=== PATIENT | male | born 1945 | race Caucasian/White ===

== ENCOUNTER 2021-02-03 12:00 | Day surgery (SDC) | payer MEDICARE ==
[2021-02-03] MEDS ORDERED: Depo-Medrol 40 MG/ML IM ONE (12:01)
[2021-02-03] MEDS ORDERED: LIDOCAINE HCL 2% 100 MG/5 ML IJ ONE (12:01)
[2021-02-03] MEDS ORDERED: DIPRIVAN 200 MG/20 ML IV ONE (14:00)
[2021-02-03] MEDS ORDERED: Lactated Ringers 1,000 ML IV ONE (14:12)
--- NOTE | 2021-02-03 16:32 | XRAY ---
Indication: Bilateral L4-S1 MBB. Intraoperative fluoroscopy provided for 18 seconds. Single digital spot image submitted for interpretation demonstrates posterior needle tips projecting over the expected left and right L4-S1 nerve roots. Correlate with intraoperative findings/report.
--- NOTE | 2021-02-03 16:39 | XRAY ---
18 seconds fluoroscopy time in surgery for bilateral L4-S1 MBB.
== END 2021-02-03 14:20 | disposition home or self-care (01) ==
LOC: SDC-PAIN 12:00
PROVIDERS: ATTEND Psychiatry & Neurology Pain Medicine
DX: M47.816 Spondylosis without myelopathy or radiculopathy, lumbar region (principal); I10 Essential (primary) hypertension; Z79.899 Other long term (current) drug therapy
CPT/HCPCS: 64493; 64494; 72020; 77002; J1030; J2704

== ENCOUNTER 2021-03-02 11:44 | Day surgery (SDC) | payer MEDICARE ==
[2021-03-02] MEDS ORDERED: Depo-Medrol 40 MG/ML IM ONE (11:45)
[2021-03-02] MEDS ORDERED: BUPIVACAINE 0.5% VIAL IJ ONE (11:45)
[2021-03-02] MEDS ORDERED: Lactated Ringers 1,000 ML IV ONE (14:09)
[2021-03-02] MEDS ORDERED: DIPRIVAN 200 MG/20 ML IV ONE (14:45)
--- NOTE | 2021-03-02 16:17 | XRAY ---
Indication: Bilateral L4-S1 MBB. Intraoperative fluoroscopy provided for 12 seconds. Single digital spot image submitted for interpretation demonstrates posterior needle tips projecting over the expected left and right L4-S1 nerve roots. Correlate with intraoperative findings/report.
--- NOTE | 2021-03-02 16:28 | XRAY ---
12 seconds of fluoroscopy was used in surgery for a bilateral L4-S1 MBB.
== END 2021-03-02 15:10 | disposition home or self-care (01) ==
LOC: SDC-PAIN 11:44
PROVIDERS: ATTEND Psychiatry & Neurology Pain Medicine
DX: M47.816 Spondylosis without myelopathy or radiculopathy, lumbar region (principal); I10 Essential (primary) hypertension; Z79.899 Other long term (current) drug therapy
CPT/HCPCS: 64493; 64494; 72020; 77002; J1030; J2704

== ENCOUNTER 2021-06-01 09:52 | Day surgery (SDC) | payer MEDICARE ==
[2021-06-01] MEDS ORDERED: Xylocaine 1% Vial 30 ML PF IJ ONE (09:53)
[2021-06-01] MEDS ORDERED: Depo-Medrol 40 MG/ML IM ONE (09:53)
[2021-06-01] MEDS ORDERED: BUPIVACAINE 0.5% VIAL IJ ONE (09:53)
[2021-06-01] MEDS ORDERED: Lactated Ringers 1,000 ML IV ONE (11:49)
[2021-06-01] MEDS ORDERED: DIPRIVAN 200 MG/20 ML IV ONE (11:55)
--- NOTE | 2021-06-01 12:53 | XRAY ---
Indication: Left L4-S1 RFA. Intraoperative fluoroscopy provided for 18 seconds. 3 digital spot images submitted for interpretation demonstrates posterior needle tips projecting over the expected left L4-S1 nerve roots. Correlate with intraoperative findings/report.
--- NOTE | 2021-06-01 13:01 | XRAY ---
18 seconds fluoroscopy time in surgery for left L4-S1 RFA.
== END 2021-06-01 12:28 | disposition home or self-care (01) ==
LOC: SDC-PAIN 09:52
PROVIDERS: ATTEND Psychiatry & Neurology Pain Medicine
DX: M47.816 Spondylosis without myelopathy or radiculopathy, lumbar region (principal); Z79.899 Other long term (current) drug therapy
CPT/HCPCS: 64635; 64636; 72100; 77002; 99100; J1030; J2001; J2704

== ENCOUNTER 2021-06-08 09:49 | Day surgery (SDC) | payer MEDICARE ==
[2021-06-08] MEDS ORDERED: Depo-Medrol 40 MG/ML IM ONE (09:50)
[2021-06-08] MEDS ORDERED: Xylocaine 1% Vial 30 ML PF IJ ONE (09:50)
[2021-06-08] MEDS ORDERED: BUPIVACAINE 0.5% VIAL IJ ONE (09:50)
[2021-06-08] MEDS ORDERED: DIPRIVAN 200 MG/20 ML IV ONE (11:48)
[2021-06-08] MEDS ORDERED: MORPHINE SULFATE 2 MG INJ ONE (12:04)
[2021-06-08] MEDS ORDERED: Lactated Ringers 1,000 ML IV ONE (12:38)
--- NOTE | 2021-06-08 12:48 | XRAY ---
Indication: Right L4-S1 RFA. Intraoperative fluoroscopy provided for 22 seconds. 3 digital spot images submitted for interpretation demonstrates posterior needle tips projecting over the expected right L4-S1 nerve roots. Correlate with intraoperative findings/report.
--- NOTE | 2021-06-08 12:58 | XRAY ---
22 seconds fluoroscopy time in surgery for right L4-S1 RFA.
== END 2021-06-08 12:13 | disposition home or self-care (01) ==
LOC: SDC-PAIN 09:49
PROVIDERS: ATTEND Psychiatry & Neurology Pain Medicine
DX: M47.816 Spondylosis without myelopathy or radiculopathy, lumbar region (principal); Z79.899 Other long term (current) drug therapy
CPT/HCPCS: 64635; 64636; 72100; 77002; 99100; J1030; J2001; J2270; J2704

== ENCOUNTER 2021-08-03 08:58 | Day surgery (SDC) | payer MEDICARE ==
[2021-08-03] MEDS ORDERED: XYLOCAINE-MPF 1% 5ML SDV IJ ONE (08:59)
[2021-08-03] MEDS ORDERED: Sodium Chloride 0.9(Preservative Free) 10 ML IJ ONE (08:59)
[2021-08-03] MEDS ORDERED: Depo-Medrol 40 MG/ML IM ONE (08:59)
[2021-08-03] MEDS ORDERED: Lactated Ringers 1,000 ML IV ONE (11:19)
[2021-08-03] MEDS ORDERED: DIPRIVAN 200 MG/20 ML IV ONE (11:20)
--- NOTE | 2021-08-03 12:24 | XRAY ---
Indication: Lumbar JAZMINE. Intraoperative fluoroscopy provided for 17 seconds. 2 digital spot image submitted for interpretation demonstrates midline posterior needle tip projecting posterior to lumbosacral junction interspace. Small amount of contrast injected for needle tip placement. Correlate with intraoperative findings/report.
--- NOTE | 2021-08-03 16:45 | XRAY ---
17 seconds of fluoroscopy was used in surgery for a lumbar JAZMINE.
== END 2021-08-03 11:43 | disposition home or self-care (01) ==
LOC: SDC-PAIN 08:58
PROVIDERS: ATTEND Psychiatry & Neurology Pain Medicine
DX: M54.16 Radiculopathy, lumbar region (principal); Z79.899 Other long term (current) drug therapy
CPT/HCPCS: 62323; 72100; 77003; J1030; J2704; Q9966

== ENCOUNTER 2021-08-17 15:14 | Emergency (ER) | payer MEDICARE ==
--- NOTE | 2021-08-17 15:15 | ERPHSYRPT ---
- History of Present Illness Time Seen by Provider: 08/17/21 15:15 Source: patient Exam Limitations: no limitations Physician History: This is a 75-year-old white male who was sent over by the pain clinic for patient who has right shoulder pain but also multiple other complaints including dizziness, weight loss, weakness and fatigue. The weight loss weakness and fatigue have been present for at least 2 months. His primary care doctor is Dr. Fowler. Lab work was done approxi-2 months ago, per patient report. He has not found out about the results of these tests. He states he has called but has been unable to reach the office. The patient denies head injury. The pain clinic reports that the patient is prescribed tramadol. He is out of his pain medicine early per their report. He has no chest pain. He has no shortness of breath. He has no abdominal pain. He has had no nausea vomiting or diarrhea symptoms. He denies acute traumatic injury to his right shoulder. Timing/Duration: week(s) (Several weeks), worse Severity: mild (To moderate) Modifying Factors: Improves With: movement Associated Symptoms: loss of appetite, malaise, weakness, No abdominal pain, No shortness of breath, No chest pain Allergies/Adverse Reactions: No Known Drug Allergies Allergy (Verified 08/17/21 15:46) Home Medications: Losartan Potassium 50 mg [Cozaar 50 MG] 50 mg PO DAILY 08/17/21 [History] Tramadol HCl 50 mg [Ultram 50 mg] 50 mg PO TID 08/17/21 [History] Travel Risk - International Travel Have you traveled outside of the country in past 3 weeks: No - Coronavirus Screening Are you exhibiting any of the following symptoms?: No Close contact with a COVID-19 positive Pt in past 14-21 Days: No - Review of Systems Constitutional: Weakness Eyes: No Symptoms Ears, Nose, & Throat: No Symptoms Respiratory: No Symptoms Cardiac: No Symptoms Abdominal/Gastrointestinal: No Symptoms Genitourinary Symptoms: No Symptoms Musculoskeletal: No Symptoms Skin: No Symptoms Neurological: Dizziness Psychological: No Symptoms Endocrine: Other (Weight loss) Hematologic/Lymphatic: No Symptoms Immunological/Allergic: No Symptoms All Other Systems: Reviewed and Negative - Past Medical History Pertinent Past Medical History: Yes - Past Surgical History Past Surgical History: Yes - Nursing Vital Signs Nursing Vital Signs: Initial Vital Signs Temperature 98 F 08/17/21 15:34 Pulse Rate 95 H 08/17/21 15:34 Respiratory Rate 18 08/17/21 15:34 Blood Pressure 139/93 08/17/21 15:34 O2 Sat by Pulse Oximetry 97 08/17/21 15:34 Pain Scale Pain Intensity 6 - Physical Exam General Appearance: no apparent distress, alert, anxiety Eye Exam: PERRL/EOMI, eyes nml inspection Ears, Nose, Throat Exam: normal ENT inspection, moist mucous membranes Neck Exam: normal inspection, non-tender, supple, full range of motion Respiratory Exam: normal breath sounds, lungs clear, airway intact, No chest tenderness, No respiratory distress Cardiovascular Exam: regular rate/rhythm, normal heart sounds, normal peripheral pulses Gastrointestinal/Abdomen Exam: soft, normal bowel sounds, No tenderness Rectal Exam: not done Back Exam: normal inspection, normal range of motion, No CVA tenderness, No vertebral tenderness Extremity Exam: normal inspection, normal range of motion, pelvis stable, tenderness (Tenderness right shoulder) Neurologic Exam: alert, oriented x 3, cooperative, mold polisher II-XII nml as tested, normal mood/affect, nml cerebellar function, nml station & gait, sensation nml Skin Exam: normal color, warm, dry Lymphatic Exam: No adenopathy SpO2 Interpretation: normal O2 Delivery: Room Air - Course Nursing assessment & vital signs reviewed: Yes EKG Interpreted by Me: RATE ([id number]), Sinus Tach, NORMAL AXIS, NORMAL INTERVALS, NORMAL QRS, NORMAL ST-T, Other (Evidence of left ventricular hypertrophy.) Ordered Tests: Active Orders 24 hr Category Date Time Status EKG-ER Only STAT Care 08/17/21 16:03 Active IV Insertion STAT Care 08/17/21 16:03 Active HEAD WITHOUT CONTRAST [CT] Stat Exams 08/17/21 17:12 Taken CBC W DIFF Stat Lab 08/17/21 16:20 Completed CMP Stat Lab 08/17/21 16:20 Completed CULTURE,URINE Stat Lab 08/17/21 16:58 Received ETHYL ALCOHOL Stat Lab 08/17/21 16:20 Completed TROPONIN Q3H Lab 08/17/21 16:20 Completed TROPONIN Q3H Lab 08/17/21 19:15 Ordered TROPONIN Q3H Lab 08/17/21 22:15 Ordered TROPONIN Q3H Lab 08/18/21 01:15 Ordered TROPONIN Q3H Lab 08/18/21 04:15 Ordered UA W/RFX CULTURE Stat Lab 08/17/21 16:58 Completed Urine Triage Profile Stat Lab 08/17/21 16:58 Completed Medication Summary Generic Name Dose Route Start Last Admin Trade Name Stella PRN Reason Stop Dose Admin Sodium Chloride 1,000 mls @ 100 mls/hr 08/17/21 16:15 08/17/21 16:21 Sodium Chloride 0.9% 1000 Ml IV 09/16/21 16:14 100 mls/hr .Q10H STACEY Administration Lab/Rad Data: Laboratory Result Diagrams 08/17/21 16:20 08/17/21 16:20 Laboratory Results 08/17/21 08/17/21 08/17/21 Range/Units 16:58 16:58 16:20 WBC (4.0-10.5) x10^3/uL RBC (4.1-5.6) x10^6/uL Hgb (12.5-18.0) g/dL Hct (42-50) % MCV (78-100) fL MCH (26-32) pg MCHC (32-36) g/dL RDW (11.5-14.0) % Plt Count (150-450) x10^3/uL MPV (7.5-11.0) fL Gran % (36.0-66.0) % Immature Gran % (Auto) (0.00-0.4) % Nucleat RBC Rel Count (0.00-0.1) % Eos # (Auto) (0-0.5) x10^3/uL Immature Gran # (Auto) (0.00-0.03) x10^3u/L Absolute Lymphs (auto) (1.0-4.6) x10^3/uL Absolute Monos (auto) (0.0-1.3) x10^3/uL Absolute Nucleated RBC (0.00-0.01) x10^3u/L Lymphocytes % (24.0-44.0) % Monocytes % (0.0-12.0) % Eosinophils % (0.00-5.0) % Basophils % (0.0-0.4) % Absolute Granulocytes (1.4-6.9) x10^3/uL Basophils # (0-0.4) x10^3/uL Sodium (137-145) mmol/L Potassium (3.5-5.1) mmol/L Chloride (98-107) mmol/L Carbon Dioxide (22-30) mmol/L Anion Gap (5-15) MEQ/L BUN (9-20) mg/dL Creatinine (0.66-1.25) mg/dL Estimated GFR ML/MIN Glucose (74-106) mg/dL Calcium (8.4-10.2) mg/dL Total Bilirubin (0.2-1.3) mg/dL AST (17-59) U/L ALT (0-50) U/L Alkaline Phosphatase (38-126) U/L Troponin I < 0.012 (0.000-0.034) ng/mL Serum Total Protein (6.3-8.2) g/dL Albumin (3.5-5.0) g/dL Urinalys Dipstick Clnc MAIN LAB Urine Color YELLOW (YELLOW) Urine Appearance CLEAR (CLEAR) Urine pH 7.0 (5-6) Ur Specific [place] 1.020 (1.005-1.025) POC Urine Protein Conf NEGATIVE (Negative) Urine Ketones TRACE (NEGATIVE) Urine Nitrite NEGATIVE (NEGATIVE) Urine Bilirubin NEGATIVE (NEGATIVE) Urine Urobilinogen 0.2 (0-1) mg/dL Urine Leukocytes SMALL (NEGATIVE) Urine WBC (Auto) 11-15 (0-5) /HPF Urine RBC (Auto) 16-25 (0-2) /HPF U Epithel Cells (Auto) NONE (FEW) /HPF Urine Bacteria (Auto) RARE (NEGATIVE) /HPF Urine RBC MODERATE (0-5) Fox/ul Ur Culture Indicated? YES Urine Glucose NEGATIVE (NEGATIVE) mg/dL Urine Opiates Level NEGATIVE (NEGATIVE) Ur Methadone NEGATIVE (NEGATIVE) Urine Barbiturates NEGATIVE (NEGATIVE) Ur Phencyclidine (PCP) NEGATIVE (NEGATIVE) Urine Amphetamine NEGATIVE (NEGATIVE) U Benzodiazepine Level NEGATIVE (NEGATIVE) Urine Cocaine NEGATIVE (NEGATIVE) Urine Marijuana (THC) NEGATIVE (NEGATIVE) Ethyl Alcohol (0-10) mg/dL 08/17/21 08/17/21 Range/Units 16:20 16:20 WBC 8.9 (4.0-10.5) x10^3/uL RBC 4.71 (4.1-5.6) x10^6/uL Hgb 15.0 (12.5-18.0) g/dL Hct 45.2 (42-50) % MCV 96.0 (78-100) fL MCH 31.8 (26-32) pg MCHC 33.2 (32-36) g/dL RDW 13.3 (11.5-14.0) % Plt Count 353 (150-450) x10^3/uL MPV 9.0 (7.5-11.0) fL Gran % 76.6 H (36.0-66.0) % Immature Gran % (Auto) 0.1 (0.00-0.4) % Nucleat RBC Rel Count 0.0 (0.00-0.1) % Eos # (Auto) 0.07 (0-0.5) x10^3/uL Immature Gran # (Auto) 0.01 (0.00-0.03) x10^3u/L Absolute Lymphs (auto) 1.00 (1.0-4.6) x10^3/uL Absolute Monos (auto) 0.98 (0.0-1.3) x10^3/uL Absolute Nucleated RBC 0.00 (0.00-0.01) x10^3u/L Lymphocytes % 11.2 L (24.0-44.0) % Monocytes % 11.0 (0.0-12.0) % Eosinophils % 0.8 (0.00-5.0) % Basophils % 0.3 (0.0-0.4) % Absolute Granulocytes 6.83 (1.4-6.9) x10^3/uL Basophils # 0.03 (0-0.4) x10^3/uL Sodium 139 (137-145) mmol/L Potassium 3.9 (3.5-5.1) mmol/L Chloride 106 (98-107) mmol/L Carbon Dioxide 21 L (22-30) mmol/L Anion Gap 16.3 H (5-15) MEQ/L BUN 22 H (9-20) mg/dL Creatinine 1.10 (0.66-1.25) mg/dL Estimated GFR > 60.0 ML/MIN Glucose 109 H (74-106) mg/dL Calcium 10.2 (8.4-10.2) mg/dL Total Bilirubin 1.40 H (0.2-1.3) mg/dL AST 25 (17-59) U/L ALT 18 (0-50) U/L Alkaline Phosphatase 112 (38-126) U/L Troponin I (0.000-0.034) ng/mL Serum Total Protein 7.6 (6.3-8.2) g/dL Albumin 4.5 (3.5-5.0) g/dL Urinalys Dipstick Clnc Urine Color (YELLOW) Urine Appearance (CLEAR) Urine pH (5-6) Ur Specific [place] (1.005-1.025) POC Urine Protein Conf (Negative) Urine Ketones (NEGATIVE) Urine Nitrite (NEGATIVE) Urine Bilirubin (NEGATIVE) Urine Urobilinogen (0-1) mg/dL Urine Leukocytes (NEGATIVE) Urine WBC (Auto) (0-5) /HPF Urine RBC (Auto) (0-2) /HPF U Epithel Cells (Auto) (FEW) /HPF Urine Bacteria (Auto) (NEGATIVE) /HPF Urine RBC (0-5) Fox/ul Ur Culture Indicated? Urine Glucose (NEGATIVE) mg/dL Urine Opiates Level (NEGATIVE) Ur Methadone (NEGATIVE) Urine Barbiturates (NEGATIVE) Ur Phencyclidine (PCP) (NEGATIVE) Urine Amphetamine (NEGATIVE) U Benzodiazepine Level (NEGATIVE) Urine Cocaine (NEGATIVE) Urine Marijuana (THC) (NEGATIVE) Ethyl Alcohol < 10 (0-10) mg/dL - Progress Progress: improved, pain not gone completely Counseled pt/family regarding: lab results, diagnosis, need for follow-up - Departure Departure Disposition: Home Clinical Impression: Chronic right shoulder pain, Dehydration, Urinary tract infection Condition: Stable Critical Care Time: No Referrals: GAVIN FOWLER DO [Primary Care Provider] - Follow up/PCP as directed Additional Instructions: Drink plenty of fluids. Follow-up with your pain specialist and your primary care doctor for further evaluation and management. Take your medication as prescribed. Prescriptions: Ciprofloxacin [Cipro 500 MG] 500 mg PO BID #14 tablet Tramadol HCl 50 mg [Ultram 50 mg] 50 mg PO TID PRN #6 tablet PRN Reason: Moderate To Severe Pain
[2021-08-17] MEDS ORDERED: Sodium Chloride 0.9% 1000 ML 1,000 ML IV SCH (16:15)
[2021-08-17] MEDS ORDERED: Sodium Chloride 0.9% 1000 ML 1,000 ML ONE (16:18)
[2021-08-17 16:34] LABS: Absolute Neutrophil Ct (ANC) 6.83 x10^3/uL (1.4-6.9); Basophil (Absolute #) 0.03 x10^3/uL (0-0.4); Eosinophil % 0.8 % (0.00-5.0); Eosinophil (Absolute #) 0.07 x10^3/uL (0-0.5); Hematocrit 45.2 % (42-50); Lymphocytes % 11.2 % (24.0-44.0); Mean Corpuscular Hemoglobin 31.8 pg (26-32); Mean Corpuscular Hgb Concent. 33.2 g/dL (32-36); Monocyte (Absolute #) 0.98 x10^3/uL (0.0-1.3); Neutrophil % 76.6 % (36.0-66.0); Platelet Count 353 x10^3/uL (150-450); Red Blood Count 4.71 x10^6/uL (4.1-5.6); Red Cell Distribution Width 13.3 % (11.5-14.0); White Blood Count 8.9 x10^3/uL (4.0-10.5)
[2021-08-17 16:49] LABS: BLOOD UREA NITROGEN 22 mg/dL (9-20); CHLORIDE 106 mmol/L (98-107); Carbon Dioxide 21 mmol/L (22-30); EST GLOMERULAR FILTRATION RATE > 60.0 ML/MIN; Glucose 109 mg/dL (74-106); Potassium 3.9 mmol/L (3.5-5.1); SODIUM 139 mmol/L (137-145)
[2021-08-17 16:50] LABS: ALBUMIN 4.5 g/dL (3.5-5.0); ALKALINE PHOSPHATASE 112 U/L (38-126); ANION GAP 16.3 MEQ/L (5-15); Calcium 10.2 mg/dL (8.4-10.2); ETHYL ALCOHOL < 10 mg/dL (0-10); SGOT/AST 25 U/L (17-59); SGPT/ALT 18 U/L (0-50); Total Protein 7.6 g/dL (6.3-8.2)
[2021-08-17 17:24] LABS: Appearance CLEAR (CLEAR); Bilirubin NEGATIVE (NEGATIVE); Dipstick done @ ? MAIN LAB; Glucose NEGATIVE (NEGATIVE); Ketones TRACE (NEGATIVE); Nitrite NEGATIVE (NEGATIVE); Protein,Urine Dip NEGATIVE (Negative); RBC MODERATE Ery/ul (0-5); Urobilinogen 0.2 mg/dL (0-1)
[2021-08-17 17:28] LABS: Bacteria RARE /HPF (NEGATIVE)
[2021-08-17 17:31] LABS: Urine Cultured Indicated? YES
[2021-08-17 17:39] LABS: Amphetamine,Urine NEGATIVE (NEGATIVE); Barbiturate,Urine NEGATIVE (NEGATIVE); Benzodiazepine,Urine NEGATIVE (NEGATIVE); Cocaine,Urine NEGATIVE (NEGATIVE); Methadone,Urine NEGATIVE (NEGATIVE); Opiate,Urine NEGATIVE (NEGATIVE); PCP,Urine NEGATIVE (NEGATIVE); THC,Urine NEGATIVE (NEGATIVE)
[2021-08-17] MEDS ORDERED: ROCEPHIN 1 Gm-D5w 50 ml Bag** 1 G/50 ML IVPB IV STA (18:53)
[2021-08-17] MEDS ORDERED: ROCEPHIN 1 Gm-D5w 50 ml Bag** 1 G/50 ML IVPB IV ONE (19:09)
[2021-08-17 19:16] VITALS: PULSE 77
[2021-08-17 20:05] VITALS: BP 146/99; O2SAT 97
--- NOTE | 2021-08-17 20:26 | XRAY ---
Exam: CT of the head without IV contrast. Comparison: None. Indication: 75-year-old male with vertigo for the past 3 weeks, worse in the past 2 days. Technique: Non-IV contrast axial images were obtained through the brain. Reconstructed sagittal and coronal images were created and reviewed. Findings: The ventricles appear within normal limits of size for the patient's stated age. No focal mass effect or midline shift is seen. No acute intracranial bleed or abnormal extra-axial fluid collection is seen. There is some mild scattered bilateral periventricular and subcortical white matter ischemic changes seen, a bit more pronounced within the left basal ganglia. A discrete low attenuation infarct is not seen. There is mild cortical atrophy. Mild atherosclerotic vascular calcification is seen within the carotid siphons. The calvarium of the skull appears intact. Mild scattered mucosal thickening is seen within the ethmoid, sphenoid, and frontal sinuses. There are no air-fluid levels. This is consistent with chronic sinus disease/sinusitis. The mastoid air cells are clear without effusion. The middle ear cavities appear grossly unremarkable. The internal auditory canals and petrous portion of the temporal bones appear unremarkable. Impression: 1. No acute intracranial bleed or other acute intracranial process is seen. 2. Mild chronic small vessel ischemic white matter changes are seen within the periventricular and subcortical white matter, a bit more prominent on the left than right. A discrete low attenuation infarct is not seen. 3. Mild chronic scattered mucosal thickening within the paranasal sinuses, as discussed above. This is consistent with chronic sinus disease/sinusitis. No air-fluid levels are seen.
== END 2021-08-17 20:05 | disposition home or self-care (01) ==
LOC: ED 15:14
DX: N39.0 Urinary tract infection, site not specified (principal); E86.0 Dehydration; G89.29 Other chronic pain; M25.511 Pain in right shoulder; R42 Dizziness and giddiness; R53.1 Weakness; R53.83 Other fatigue; Z79.891 Long term (current) use of opiate analgesic
CPT/HCPCS: 36000; 36415; 70450; 80053; 80307; 81015; 84484; 85025; 87086; 93005; 96360; 96365; 99284; G0480; J0696

== ENCOUNTER 2023-08-03 22:27 | Emergency (ER) | payer MEDICARE ==
[2023-08-03 23:40] LABS: Absolute Neutrophil Ct (ANC) 16.05 x10^3/uL (1.78-5.38); BASOPHIL % 0.2 % (0.2-1.2); Basophil (Absolute #) 0.03 x10^3/uL (0.01-0.08); Eosinophil % 0.1 % (0.8-7.0); Eosinophil (Absolute #) 0.01 x10^3/uL (0.04-0.54); Hemoglobin 11.7 g/dL (13.7-17.5); IMMATURE GRAN # 0.12 x10^3u/L (0.001-0.031); IMMATURE GRAN % 0.7 % (0.001-0.429); Lymphocyte (Absolute #) 0.51 x10^3/uL (1.32-3.57); Lymphocytes % 2.9 % (21.8-53.1); Mean Cell Volume 90.2 fL (79.0-92.2); Mean Corpuscular Hgb Concent. 34.4 g/dL (32.3-36.5); Mean Platelet Volume 9.1 fL (9.4-12.4); Monocyte (Absolute #) 0.91 x10^3/uL (0.30-0.82); Monocytes % 5.2 % (5.3-12.2); Neutrophil % 90.9 % (34.0-67.9); Platelet Count 839 x10^3/uL (163-337); Red Blood Count 3.77 x10^6/uL (4.63-6.08); Red Cell Distribution Width 13.4 % (11.6-14.4); White Blood Count 17.6 x10^3/uL (4.23-9.07)
[2023-08-03 23:43] VITALS: TEMP 97.3
[2023-08-03 23:53] LABS: ALBUMIN 3.7 g/dL (3.5-5.0); BILIRUBIN,TOTAL 0.8 mg/dL (0.2-1.3); Calcium 8.9 mg/dL (8.4-10.2); Potassium 4.9 mmol/L (3.5-5.1); Total Protein 7.3 g/dL (6.3-8.2)
[2023-08-03 23:59] LABS: Creatinine 1 7.69 mg/dL (0.66-1.25); EST GLOMERULAR FILTRATION RATE 6.8 ML/MIN
[2023-08-04] MEDS ORDERED: Sodium Chloride 0.9% 1000 ML 1,000 ML ONE ×3 (00:01→03:09)
[2023-08-04] MEDS ORDERED: Zofran 4 MG/2 ML VIAL ONE (00:01)
[2023-08-04] MEDS: Sodium Chloride 0.9% 1000 ML 1,000 ML IV STA ×2 (00:05→01:16)
[2023-08-04] MEDS: Zofran 4 MG/2 ML VIAL IV ONE (00:06)
[2023-08-04] MEDS ORDERED: SUBLIMAZE 100 MCG/2 ML ONE (00:19)
[2023-08-04] MEDS: SUBLIMAZE 100 MCG/2 ML IV ONE (00:21)
--- NOTE | 2023-08-04 00:33 | ERPHSYRPT ---
- History of Present Illness Time Seen by Provider: 08/03/23 22:50 Historian: patient, other Exam Limitations: no limitations Patient Subjective Stated Complaint: Pt reports "I had stones removed on 07/09/[address] Kyle. After the removal I didn't have urine for 24 hours so they put in a catheter that was removed two weeks ago. Now I haven't peed in two days, only getting pus out and my bladder hurts." Triage Nursing Assessment: Pt alert and oriented x3. Skin warm/dry. Wheeled to ED cot by staff, transfered from chair to cot with assist x1. Pt complaining of "bladder" low abdominal pain 10/10 described as sharp. Low abdomen tender with palpation. Accompanied by friend. Physician History: 77-year-old male with history of recurrent kidney stones, multiple renal surgeries, last July 09, [address] Rainey at [facility] with subsequent urinary retention needing catheter placement which is out for almost 2 weeks and having off-and-on fever chills with a Tmax of 102 couple of days ago presented in the ER with painful urination with pus with worsening generalized abdominal pain more on the left and lower abdomen. Patient reports 10/10 intensity pain and is unable to obtain any relief. Reports nausea but no vomiting. Also reports having some loose stools for the last few days. Currently patient is af ebrile. Allergies/Adverse Reactions: No Known Drug Allergies Allergy (Verified 08/03/23 22:56) Home Medications: Losartan Potassium 50 mg [Cozaar 50 MG] 50 mg PO DAILY 08/17/21 [History] Tamsulosin HCl 0.4 mg [Flomax 0.4 MG] 1 tab PO DAILY 08/03/23 [History] Hx Tetanus, Diphtheria Vaccination/Date Given: No Hx Influenza Vaccination/Date Given: No Hx Pneumococcal Vaccination/Date Given: No Travel Risk - International Travel Have you traveled outside of the country in past 3 weeks: No - Emerging Infectious Disease Are you exhibiting symptoms associated with any current EIDs: Yes Symptoms: Abdominal Pain - Review of Systems Constitutional: Fatigue, Weakness Eyes: No Symptoms Ears, Nose, & Throat: No Symptoms Respiratory: No Symptoms Cardiac: No Symptoms Abdominal/Gastrointestinal: Abdominal Pain, Nausea Genitourinary Symptoms: Urinary Retention, Flank Pain, Penile Discharge Musculoskeletal: Back Pain Skin: No Symptoms Neurological: No Symptoms Endocrine: No Symptoms Hematologic/Lymphatic: No Symptoms Immunological/Allergic: No Symptoms - Past Medical History Pertinent Past Medical History: Yes Cardiac History: Hypertension History: Other Other Medical History: chronic right shoulder pain and back pain, kidney stones - Past Surgical History Past Surgical History: Yes Musculoskeletal: Other Other Surgical History: back injections, kidney stone removal 07/09/23 - Social History Smoking Status: Never smoker Exposure to second hand smoke: No Drug Use: none Patient Lives Alone: No - Social Determinants of Health Will the patient participate in the screening: Declined to provide - Nursing Vital Signs Nursing Vital Signs: Initial Vital Signs Temperature 97.3 F 08/03/23 22:57 Pulse Rate 112 H 08/03/23 22:57 Respiratory Rate 16 08/03/23 22:57 Blood Pressure 78/46 08/03/23 22:57 O2 Sat by Pulse Oximetry 97 08/03/23 22:57 Pain Scale Pain Intensity 8 - Physical Exam General Appearance: moderate distress Eye Exam: PERRL/EOMI Ears, Nose, Throat Exam: normal ENT inspection Neck Exam: normal inspection, supple, full range of motion Respiratory Exam: normal breath sounds, lungs clear Cardiovascular Exam: normal heart sounds, tachycardia Gastrointestinal/Abdomen Exam: normal bowel sounds, tenderness (Analyzed), guarding Extremity Exam: normal inspection, normal range of motion Neurologic Exam: alert, oriented x 3, cooperative Skin Exam: normal color SpO2 Interpretation: normal SpO2: 97 O2 Delivery: Room Air Ordered Tests: Active Orders 24 hr Category Date Time Status IV Insertion STAT Care 08/03/23 23:23 Active NPO (ED) STAT Care 08/03/23 23:23 Active ABDOMEN AND PELVIS W/0 CONTRAS [CT] Stat Exams 08/03/23 23:24 Completed BLOOD CULTURE Stat Lab 08/03/23 23:55 Received CBC W DIFF Stat Lab 08/03/23 23:37 Completed CMP Stat Lab 08/03/23 23:37 Completed CULTURE,URINE Stat Lab 08/03/23 23:23 Received LIPASE Stat Lab 08/03/23 23:37 Completed Lactic Acid Stat Lab 08/03/23 23:23 Completed Lactic Acid Stat Lab 08/04/23 01:35 Received PROCALCITONIN Stat Lab 08/04/23 00:00 Completed UA W/RFX UR CULTURE Stat Lab 08/03/23 23:23 Completed Medication Summary Discontinued Medications Generic Name Dose Route Start Last Admin Trade Name Stella PRN Reason Stop Dose Admin Fentanyl Citrate 50 mcg 08/03/23 23:23 08/04/23 00:21 Fentanyl Citrate 100 Mcg/2 Ml* Vial IV 08/03/23 23:24 50 mcg STAT ONE Administration Fentanyl Citrate Confirm 08/04/23 00:19 Fentanyl Citrate 100 Mcg/2 Ml* Vial Administered 08/04/23 00:20 Dose 100 mcg .ROUTE .STK-MED ONE Sodium Chloride 1,000 mls @ 999 mls/hr 08/03/23 23:23 08/04/23 01:23 Sodium Chloride 0.9% 1000 Ml IV 08/04/23 00:23 Infused .Q1H1M STA Infusion Sodium Chloride Confirm 08/04/23 00:01 Sodium Chloride 0.9% 1000 Ml Administered 08/04/23 00:02 Dose 1,000 mls @ ud .ROUTE .STK-MED ONE Ceftriaxone Sodium 1 gm in 100 mls @ 200 mls/hr 08/04/23 00:50 08/04/23 02:11 Rocephin 1 Gm / 100 Ml Nacl IV 08/04/23 01:19 Infused STAT ONE Infusion Sodium Chloride 1,000 mls @ 999 mls/hr 08/04/23 01:10 08/04/23 02:21 Sodium Chloride 0.9% 1000 Ml IV 08/04/23 02:10 Infused .Q1H1M STA Infusion Ceftriaxone Sodium Confirm 08/04/23 01:12 Rocephin 1 Gm / 100 Ml Nacl Administered 08/04/23 01:13 Dose 1 gm in 100 mls @ ud IV .STK-MED ONE Sodium Chloride Confirm 08/04/23 01:15 Sodium Chloride 0.9% 1000 Ml Administered 08/04/23 01:16 Dose 1,000 mls @ ud .ROUTE .STK-MED ONE Ondansetron HCl 4 mg 08/03/23 23:23 08/04/23 00:06 Ondansetron Hcl 4 Mg/2 Ml Vial IV 08/03/23 23:24 4 mg STAT ONE Administration Ondansetron HCl Confirm 08/04/23 00:01 Ondansetron Hcl 4 Mg/2 Ml Vial Administered 08/04/23 00:02 Dose 4 mg .ROUTE .STK-MED ONE Lab/Rad Data: Laboratory Result Diagrams 08/03/23 23:37 08/03/23 23:37 Laboratory Results 08/04/23 08/03/23 08/03/23 Range/Units 00:00 23:37 23:37 WBC 17.6 H (4.23-9.07) x10^3/uL RBC 3.77 L (4.63-6.08) x10^6/uL Hgb 11.7 L (13.7-17.5) g/dL Hct 34.0 L (40.1-51.0) % MCV 90.2 (79.0-92.2) fL MCH 31.0 (25.7-32.2) pg MCHC 34.4 (32.3-36.5) g/dL RDW 13.4 (11.6-14.4) % Plt Count 839 H (163-337) x10^3/uL MPV 9.1 L (9.4-12.4) fL Gran % 90.9 H (34.0-67.9) % Immature Gran % (Auto) 0.7 H (0.001-0.429) % Nucleat RBC Rel Count 0.0 (0.00-0.2) % Eos # (Auto) 0.01 L (0.04-0.54) x10^3/uL Immature Gran # (Auto) 0.12 H (0.001-0.031) x10^3u/L Absolute Lymphs (auto) 0.51 L (1.32-3.57) x10^3/uL Absolute Monos (auto) 0.91 H (0.30-0.82) x10^3/uL Absolute Nucleated RBC 0.00 (0.00-0.012) x10^3u/L Lymphocytes % 2.9 L (21.8-53.1) % Monocytes % 5.2 L (5.3-12.2) % Eosinophils % 0.1 L (0.8-7.0) % Basophils % 0.2 (0.2-1.2) % Absolute Granulocytes 16.05 H (1.78-5.38) x10^3/uL Basophils # 0.03 (0.01-0.08) x10^3/uL Sodium 122 L (135-145) mmol/L Potassium 4.9 (3.5-5.1) mmol/L Chloride 88 L (98-107) mmol/L Carbon Dioxide 13 L* (22-30) mmol/L Anion Gap 26.0 H (5-15) MEQ/L BUN 177 H (9-20) mg/dL Creatinine 7.69 H (0.66-1.25) mg/dL Estimated GFR 6.8 ML/MIN Glucose 197 H (74-106) mg/dL Lactic Acid (0.4-2.0) Calcium 8.9 (8.4-10.2) mg/dL Total Bilirubin 0.80 (0.2-1.3) mg/dL AST 20 (17-59) U/L ALT 28 (0-50) U/L Alkaline Phosphatase 166 H (38-126) U/L Serum Total Protein 7.3 (6.3-8.2) g/dL Albumin 3.7 (3.5-5.0) g/dL Lipase 437 H (23-300) U/L Procalcitonin 4.540 H* (0.030-0.080) ng/mL Urine Color (Yellow) Urine Appearance (Clear) Urine pH (4.6-8.0) Ur Specific Orange (1.005-1.030) Urine Protein (Negative) Urine Glucose (UA) (Negative) mg/dL Urine Ketones (Negative) Urine Blood (Negative) Urine Nitrite (Negative) Urine Bilirubin (Negative) Urine Urobilinogen (0.2) mg/dL Ur Leukocyte Esterase (Negative) U Hyaline Cast (Auto) (0-2) /LPF Urine Microscopic RBC (0-5) /HPF Urine Microscopic WBC (0-5) /HPF Ur Epithelial Cells (None Seen) /HPF Urine Bacteria (None Seen) /HPF Urine Culture Reflexed (NO) Slides for Path Review YES 08/03/23 08/03/23 Range/Units 23:23 23:23 WBC (4.23-9.07) x10^3/uL RBC (4.63-6.08) x10^6/uL Hgb (13.7-17.5) g/dL Hct (40.1-51.0) % MCV (79.0-92.2) fL MCH (25.7-32.2) pg MCHC (32.3-36.5) g/dL RDW (11.6-14.4) % Plt Count (163-337) x10^3/uL MPV (9.4-12.4) fL Gran % (34.0-67.9) % Immature Gran % (Auto) (0.001-0.429) % Nucleat RBC Rel Count (0.00-0.2) % Eos # (Auto) (0.04-0.54) x10^3/uL Immature Gran # (Auto) (0.001-0.031) x10^3u/L Absolute Lymphs (auto) (1.32-3.57) x10^3/uL Absolute Monos (auto) (0.30-0.82) x10^3/uL Absolute Nucleated RBC (0.00-0.012) x10^3u/L Lymphocytes % (21.8-53.1) % Monocytes % (5.3-12.2) % Eosinophils % (0.8-7.0) % Basophils % (0.2-1.2) % Absolute Granulocytes (1.78-5.38) x10^3/uL Basophils # (0.01-0.08) x10^3/uL Sodium (135-145) mmol/L Potassium (3.5-5.1) mmol/L Chloride (98-107) mmol/L Carbon Dioxide (22-30) mmol/L Anion Gap (5-15) MEQ/L BUN (9-20) mg/dL Creatinine (0.66-1.25) mg/dL Estimated GFR ML/MIN Glucose (74-106) mg/dL Lactic Acid 2.0 (0.4-2.0) Calcium (8.4-10.2) mg/dL Total Bilirubin (0.2-1.3) mg/dL AST (17-59) U/L ALT (0-50) U/L Alkaline Phosphatase (38-126) U/L Serum Total Protein (6.3-8.2) g/dL Albumin (3.5-5.0) g/dL Lipase (23-300) U/L Procalcitonin (0.030-0.080) ng/mL Urine Color Yellow (Yellow) Urine Appearance Turbid A (Clear) Urine pH 8.5 A (4.6-8.0) Ur Specific Orange 1.010 (1.005-1.030) Urine Protein 300 A (Negative) Urine Glucose (UA) Negative (Negative) mg/dL Urine Ketones Negative (Negative) Urine Blood Moderate A (Negative) Urine Nitrite Negative (Negative) Urine Bilirubin Negative (Negative) Urine Urobilinogen 0.2 (0.2) mg/dL Ur Leukocyte Esterase Large A (Negative) U Hyaline Cast (Auto) 3-5 A (0-2) /LPF Urine Microscopic RBC 51-100 A (0-5) /HPF Urine Microscopic WBC >100 A (0-5) /HPF Ur Epithelial Cells Rare (None Seen) /HPF Urine Bacteria Many A (None Seen) /HPF Urine Culture Reflexed ORDERED SEPARATELY (NO) Slides for Path Review - Progress Progress: improved, pain not gone completely, re-examined Progress Note: 08/04/23 02:33 77-year-old is evaluated in ER for urinary retention. Thomas catheter is placed in and almost greater than 800 cc urine output. He is given fluids and symptomatic treatment, on reevaluation feeling better. Workup showed white count of 17, acute renal failure with a creatinine of 7.69, BUN of 177, sodium 122, potassium of 4.9 and bicarb of 13. Patient has a lactate of 2.0 and procalcitonin of 4.5 with a lipase of 430s. Does have UTI and given a dose of Rocephin. I have obtained CT abdomen pelvis without contrast which showed bilateral moderate hydroureteronephrosis with no obstructive uropathy. Does have cystitis. I believe patient has urinary retention/outlet obstruction which was causing postobstructive renal failure with such an elevation of BUN. Feeling better after pain medications. I have discussed with Dr. Elda reyes ER, reviewed history, workup and also have discussed with DIGITAL CONTENT COORDINATOR for hospitalist Jamila Martinez, agreed with transfer. I have discussed the results of workup, current management and plan of transfer with patient who understand and agrees with it. Taking into account patient's history, current workup, review and analysis of data, current management and discussion with other physician it is one of the higher level complexity case. Discussed with Dr.: Other (Dr. Elda Wong [facility]) Will see patient in: ED Counseled pt/family regarding: lab results, diagnosis, rad results Medical Desision Making - Independent Historian Additional History obtained from: Family - Discussion of managment Care discussed with:: on-call "doc" (Dr. Elda [place]) Reviewed:: Test results Agreed on:: Treatment plan Will see patient: in ED - Diagnostic Testing Diagnostic test were ordered, analyzed, and reviewed by me: Yes Radiological Interpretation: Reviewed by me, Teleradiologist Report - Risk of complications The pt has a mod risk of morbidity or mortality based on: Need for prescription drug management The pt has a high risk of morbidity or mortality based on: Decision regarding hospitilization or escalation of hosp level of care - Departure Departure Disposition: Transfer Clinical Impression: Urinary retention, Acute renal failure, Hyponatremia, Dehydration, Urinary tract infection, Sepsis secondary to UTI, Hydroureteronephrosis Condition: Critical Critical Care Time: Yes Critical Care Time(excluding separately billable procedures): Critical 30-74 mins Referrals: KENNETH MANUEL DO [Primary Care Provider] - Follow up/PCP as directed
[2023-08-04 00:36] LABS: Appearance Turbid (Clear); Bacteria Many /HPF (None Seen); Bilirubin Negative (Negative); Blood Moderate (Negative); Epithelial Cells Rare /HPF (None Seen); Glucose, Urine Negative (Negative); Ketones Negative (Negative); Leukocyte Esterase Large (Negative); Nitrite Negative (Negative); Ph 8.5 (4.6-8.0); Protein,Urine Dip 300 (Negative); RBC 51-100 /HPF (0-5); Urobilinogen 0.2 mg/dL (0.2); WBC >100 /HPF (0-5)
[2023-08-04 00:41] LABS: ADD URINE CULTURE? ORDERED SEPARATELY (NO)
[2023-08-04] MEDS ORDERED: ROCEPHIN 1 GM / 100 ML NaCl 1 GM/100 ML IVPB IV ONE (01:12)
[2023-08-04] MEDS: ROCEPHIN 1 GM / 100 ML NaCl 1 GM/100 ML IVPB IV ONE (01:16)
--- NOTE | 2023-08-04 01:38 | XRAY ---
CLINICAL HISTORY: Urinary retention/UTI/flank pain COMPARISON: prior on 12/12/2022 08:46:42 CARPET INSPECTOR TECHNIQUE: Contiguous axial images were obtained from the level of the diaphragm to the pubic symphysis without intravenous or oral contrast. Coronal and sagittal reconstructions were likewise performed and indicated to increase the sensitivity for detecting clinically relevant pathology. CT scan was performed according to ALARA (as low as reasonable achievable). FINDINGS: The visualized lung bases are clear. Evaluation of the abdominal and pelvic visceral organs is limited without intravenous contrast. The unenhanced liver, pancreas, and left adrenal gland are grossly unremarkable. The gallbladder is present. Calcified granulomas noted in spleen. Well defined heterogeneous fat attenuating lesion noted in right adrenal gland measuring 30 mm x 19 mm. The kidneys are normal in size. Bilateral renal calyceal calculi noted, largest 5 mm x 5 mm in righht kidney and 14 mm x 10 mm in left kidney. Bilateral kidneys show moderate hydroureteronephrosis, with dilated and tortuous ureters. There is mild bilateral perinephric stranding. The ureters donot show any hyperdense calculi within. No adenopathy or fluid collections are seen. No evidence of focal or diffuse bowel wall thickening or evidence of bowel obstruction is seen. The aorta is normal in caliber. The urinary bladder is normal in contour with diffusely mild thickened seymour, measuring upto 6 mm. Moderate prostatomegaly noted with hypertrophied median gland projecting into urinary bladder. Lumbar spine shows levoscoliosis. Diffuse degenerative changes noted in thoracolumbar vertebra. Stable small fat containing umbilical hernia through 13 mm anterior abdominal wall defect. IMPRESSION: 1. Bilateral renal calculi - similar to previous scan; 2. Bilateral moderate hydroureteronephrosis - new finding. 3. Resolution of right distal ureteric and bladder calculi seen in previous CT 4. Moderate prostatomegaly - static 5. Chronic cystitis features- static 6. Stable right adrenal fat containing lesion; differential - myelolipoma, adenoma 7. Calcified splenic granulomas - static 8.Lumbar spine shows levoscoliosis and diffuse degenerative changes - static 9. Stable small fat containing umbilical hernia. Electronically Signed by: Siva Reese MD. (08/04/2023 01:35:20 EDT)
[2023-08-04 02:29] LABS: Slide Review 1 YES
[2023-08-04] MEDS: Sodium Chloride 0.9% 1000 ML 1,000 ML IV SCH (03:09)
[2023-08-04 03:13] VITALS: BP 86/50; PULSE 90; RESP 17; O2SAT 98
== END 2023-08-04 03:33 | disposition short-term general hospital (02) ==
LOC: ED 22:27
DX: A41.9 Sepsis, unspecified organism (principal); N39.0 Urinary tract infection, site not specified; R65.20 Severe sepsis without septic shock; N17.9 Acute kidney failure, unspecified; R33.9 Retention of urine, unspecified; E87.1 Hypo-osmolality and hyponatremia; E86.0 Dehydration; N13.30 Unspecified hydronephrosis; R30.0 Dysuria; R10.84 Generalized abdominal pain; I10 Essential (primary) hypertension; Z79.899 Other long term (current) drug therapy
CPT/HCPCS: 36000; 36415; 74176; 80053; 81001; 83605; 83690; 84145; 85025; 87040; 87077; 87086; 87186; 96365; 96374; 96375; 99285; 99291; J0696; J2405; J3010

== ENCOUNTER 2023-09-08 13:36 | Emergency (ER) | payer MEDICARE ==
--- NOTE | 2023-09-08 13:48 | ERPHSYRPT ---
- History of Present Illness Time Seen by Provider: 09/08/23 13:48 Source: patient Exam Limitations: no limitations Physician History: The patient, with a history of recurrent kidney stones, presents with a chief complaint of severe burning pain and discomfort associated with his Pedraza catheter. He underwent kidney stone removal on July 08, followed by a severe infection the next day, leading to multiple hospital admissions. The patient has had a total of thirteen lithotripsies over the years. Following the most recent procedure in June, he experienced prolonged bleeding, clotting, and blockage of the Pedraza catheter, which only resolved three weeks ago. This is his sixth Pedraza catheter since July 09. Over the last 72 hours, he has developed excruciating burning pain, particularly with movement. In addition, he has noticed an increasing amount of thick mucus in the Pedraza bag, which has been getting progressively thicker and has even blocked the discharge on one occasion. He was last on antibiotics during his hospital stay approximately a month ago. He denies any fever, chills, or abdominal pain, and his temperature has been consistently low. The pain is primarily located at the penis where the Pedraza catheter enters. He is unable to urinate on his own. Timing/Duration: day(s) (3) Activites at Onset: none Quality: burning, sharpness Onset Location: urethral Pain Radiation: none Severity of Pain-Max: severe Severity of Pain-Current: severe Modifying Factors: Improves With: other (urination). Worsens With: palpation Associated Symptoms: dysuria, other (sediment in pedraza bag), No abdominal pain, No fever, No chills, No diaphoresis, No nausea, No vomiting Prior abdominal problems: similar symptoms Sexual intercourse history: non-contributory Allergies/Adverse Reactions: No Known Drug Allergies Allergy (Verified 09/08/23 13:43) Home Medications: Losartan Potassium 50 mg [Cozaar 50 MG] 50 mg PO DAILY 08/17/21 [History] Hx Tetanus, Diphtheria Vaccination/Date Given: No Hx Influenza Vaccination/Date Given: No Hx Pneumococcal Vaccination/Date Given: No Travel Risk - Emerging Infectious Disease Are you exhibiting symptoms associated with any current EIDs: Yes Symptoms: Abdominal Pain - Past Medical History Pertinent Past Medical History: Yes Cardiac History: Hypertension History: Other Other Medical History: chronic right shoulder pain and back pain, kidney stones - Past Surgical History Past Surgical History: Yes Musculoskeletal: Other Other Surgical History: back injections, kidney stone removal 07/09/23 - Social History Smoking Status: Never smoker Exposure to second hand smoke: No Drug Use: none Patient Lives Alone: No - Social Determinants of Health Will the patient participate in the screening: Declined to provide - Review of Systems All Other Systems: Reviewed and Negative - Nursing Vital Signs Nursing Vital Signs: Initial Vital Signs Temperature 98.5 F 09/08/23 13:43 Pulse Rate 99 H 09/08/23 13:43 Respiratory Rate 17 09/08/23 13:43 Blood Pressure 133/63 09/08/23 13:43 O2 Sat by Pulse Oximetry 98 09/08/23 13:43 Pain Scale Pain Intensity 10 - Physical Exam General Appearance: no apparent distress, thin Gastrointestinal/Abdomen Exam: soft, No tenderness, No distention, No mass, No guarding, No rebound SpO2 Interpretation: normal O2 Delivery: Room Air Comments: pedraza anchored, dark yellow urine with sediment in pedraza bag. swelling at urethral meatus - Course Nursing assessment & vital signs reviewed: Yes Ordered Tests: Active Orders 24 hr Category Date Time Status Bladder Irrigation STAT Care 09/08/23 14:50 Active Discontinue Pedraza Cath STAT Care 09/08/23 14:04 Active Pedraza [Catheter-Ballantine Pedraza] STAT Care 09/08/23 14:04 Active IV Insertion STAT Care 09/08/23 13:46 Active BLOOD CULTURE Stat Lab 09/08/23 Ordered CBC W DIFF Stat Lab 09/08/23 14:00 Completed CMP Stat Lab 09/08/23 14:00 Completed CULTURE,URINE Stat Lab 09/08/23 14:49 Received Lactic Acid Stat Lab 09/08/23 14:15 Completed Lactic Acid Stat Lab 09/08/23 16:15 Completed UA W/RFX UR CULTURE Stat Lab 09/08/23 14:49 Completed Medication Summary Discontinued Medications Generic Name Dose Route Start Last Admin Trade Name Freq PRN Reason Stop Dose Admin Fentanyl Citrate 25 mcg 09/08/23 14:35 09/08/23 14:37 Fentanyl Citrate 100 Mcg/2 Ml* Vial IV 09/08/23 14:36 25 mcg STAT ONE Administration Fentanyl Citrate Confirm 09/08/23 14:36 Fentanyl Citrate 100 Mcg/2 Ml* Vial Administered 09/08/23 14:37 Dose 100 mcg .ROUTE .STK-MED ONE Levofloxacin/Dextrose 750 mg in 150 mls @ 100 mls/hr 09/08/23 14:25 09/08/23 16:16 Levofloxacin 750mg/150ml D5w IV 09/08/23 15:54 Infused STAT STA Infusion Levofloxacin/Dextrose Confirm 09/08/23 14:33 Levofloxacin 750mg/150ml D5w Administered 09/08/23 14:34 Dose 750 mg in 150 mls @ ud IV .STK-MED ONE Sodium Chloride 1,000 mls @ 999 mls/hr 09/08/23 15:01 09/08/23 16:16 Sodium Chloride 0.9% 1000 Ml IV 09/08/23 16:01 Infused .Q1H1M STA Infusion Sodium Chloride Confirm 09/08/23 15:05 Sodium Chloride 0.9% 1000 Ml Administered 09/08/23 15:06 Dose 1,000 mls @ ud .ROUTE .STK-MED ONE Lidocaine HCl 200 mg 09/08/23 14:03 09/08/23 14:16 Lidocaine Hcl 20 Mg/Ml Jelly Uro-Jet TOP 09/08/23 14:04 200 mg STAT ONE Administration Lidocaine HCl Confirm 09/08/23 14:15 Lidocaine Hcl 20 Mg/Ml Jelly Uro-Jet Administered 09/08/23 14:16 Dose 200 mg .ROUTE .STK-MED ONE Morphine Sulfate 2 mg 09/08/23 14:03 09/08/23 14:16 Morphine Sulfate 2 Mg/Ml Inj IV 09/08/23 14:04 2 mg STAT ONE Administration Morphine Sulfate Confirm 09/08/23 14:15 Morphine Sulfate 2 Mg/Ml Inj Administered 09/08/23 14:16 Dose 2 mg .ROUTE .STK-MED ONE Lab/Rad Data: Laboratory Result Diagrams 09/08/23 14:00 09/08/23 14:00 Laboratory Results 09/08/23 09/08/23 09/08/23 Range/Units 16:15 14:49 14:15 WBC (4.23-9.07) x10^3/uL RBC (4.63-6.08) x10^6/uL Hgb (13.7-17.5) g/dL Hct (40.1-51.0) % MCV (79.0-92.2) fL MCH (25.7-32.2) pg MCHC (32.3-36.5) g/dL RDW (11.6-14.4) % Plt Count (163-337) x10^3/uL MPV (9.4-12.4) fL Gran % (34.0-67.9) % Immature Gran % (Auto) (0.001-0.429) % Nucleat RBC Rel Count (0.00-0.2) % Eos # (Auto) (0.04-0.54) x10^3/uL Immature Gran # (Auto) (0.001-0.031) x10^3u/L Absolute Lymphs (auto) (1.32-3.57) x10^3/uL Absolute Monos (auto) (0.30-0.82) x10^3/uL Absolute Nucleated RBC (0.00-0.012) x10^3u/L Lymphocytes % (21.8-53.1) % Monocytes % (5.3-12.2) % Eosinophils % (0.8-7.0) % Basophils % (0.2-1.2) % Absolute Granulocytes (1.78-5.38) x10^3/uL Basophils # (0.01-0.08) x10^3/uL Sodium (135-145) mmol/L Potassium (3.5-5.1) mmol/L Chloride (98-107) mmol/L Carbon Dioxide (22-30) mmol/L Anion Gap (5-15) MEQ/L BUN (9-20) mg/dL Creatinine (0.66-1.25) mg/dL Estimated GFR ML/MIN Glucose (74-106) mg/dL Lactic Acid 0.9 2.6 H (0.4-2.0) Calcium (8.4-10.2) mg/dL Total Bilirubin (0.2-1.3) mg/dL AST (17-59) U/L ALT (0-50) U/L Alkaline Phosphatase (38-126) U/L Serum Total Protein (6.3-8.2) g/dL Albumin (3.5-5.0) g/dL Urine Color Red A (Yellow) Urine Appearance Cloudy A (Clear) Urine pH 7.0 (4.6-8.0) Ur Specific [place] 1.010 (1.005-1.030) Urine Protein 100 A (Negative) Urine Glucose (UA) Negative (Negative) mg/dL Urine Ketones Negative (Negative) Urine Blood Large A (Negative) Urine Nitrite Negative (Negative) Urine Bilirubin Negative (Negative) Urine Urobilinogen 1.0 A (0.2) mg/dL Ur Leukocyte Esterase Moderate A (Negative) U Hyaline Cast (Auto) NONE SEEN (0-2) /LPF Urine Microscopic RBC >100 A (0-5) /HPF Urine Microscopic WBC 51-100 A (0-5) /HPF Ur Epithelial Cells Rare (None Seen) /HPF Urine Bacteria None Seen (None Seen) /HPF Urine Culture Reflexed ORDERED SEPARATELY (NO) 09/08/23 09/08/23 Range/Units 14:00 14:00 WBC 8.9 (4.23-9.07) x10^3/uL RBC 3.12 L (4.63-6.08) x10^6/uL Hgb 9.5 L (13.7-17.5) g/dL Hct 30.3 L (40.1-51.0) % MCV 97.1 H (79.0-92.2) fL MCH 30.4 (25.7-32.2) pg MCHC 31.4 L (32.3-36.5) g/dL RDW 16.1 H (11.6-14.4) % Plt Count 376 H (163-337) x10^3/uL MPV 8.5 L (9.4-12.4) fL Gran % 72.0 H (34.0-67.9) % Immature Gran % (Auto) 0.3 (0.001-0.429) % Nucleat RBC Rel Count 0.0 (0.00-0.2) % Eos # (Auto) 0.41 (0.04-0.54) x10^3/uL Immature Gran # (Auto) 0.03 (0.001-0.031) x10^3u/L Absolute Lymphs (auto) 1.23 L (1.32-3.57) x10^3/uL Absolute Monos (auto) 0.76 (0.30-0.82) x10^3/uL Absolute Nucleated RBC 0.00 (0.00-0.012) x10^3u/L Lymphocytes % 13.9 L (21.8-53.1) % Monocytes % 8.6 (5.3-12.2) % Eosinophils % 4.6 (0.8-7.0) % Basophils % 0.6 (0.2-1.2) % Absolute Granulocytes 6.38 H (1.78-5.38) x10^3/uL Basophils # 0.05 (0.01-0.08) x10^3/uL Sodium 137 (135-145) mmol/L Potassium 4.2 (3.5-5.1) mmol/L Chloride 105 (98-107) mmol/L Carbon Dioxide 19 L (22-30) mmol/L Anion Gap 16.8 H (5-15) MEQ/L BUN 31 H (9-20) mg/dL Creatinine 1.37 H (0.66-1.25) mg/dL Estimated GFR 53.5 ML/MIN Glucose 155 H (74-106) mg/dL Lactic Acid (0.4-2.0) Calcium 9.1 (8.4-10.2) mg/dL Total Bilirubin 0.70 (0.2-1.3) mg/dL AST 27 (17-59) U/L ALT 31 (0-50) U/L Alkaline Phosphatase 89 (38-126) U/L Serum Total Protein 7.0 (6.3-8.2) g/dL Albumin 3.8 (3.5-5.0) g/dL Urine Color (Yellow) Urine Appearance (Clear) Urine pH (4.6-8.0) Ur Specific [place] (1.005-1.030) Urine Protein (Negative) Urine Glucose (UA) (Negative) mg/dL Urine Ketones (Negative) Urine Blood (Negative) Urine Nitrite (Negative) Urine Bilirubin (Negative) Urine Urobilinogen (0.2) mg/dL Ur Leukocyte Esterase (Negative) U Hyaline Cast (Auto) (0-2) /LPF Urine Microscopic RBC (0-5) /HPF Urine Microscopic WBC (0-5) /HPF Ur Epithelial Cells (None Seen) /HPF Urine Bacteria (None Seen) /HPF Urine Culture Reflexed (NO) - Progress Progress: unchanged Progress Note: Will order CBC, CMP, UA, urine cx and blood cx. Start empiric abx based on most recent urine cx. Exchange pedraza cath prior to urine sample. Recent urine culture showed growth of Klebsiella and Proteus that was pansensitive. Will start levofloxacin at this time. When catheter was exchanged it was a large blood clot and wants new Pedraza was placed patient had clear urine and pain was significantly improved. After his liter of saline was completed a repeat lactate was performed which improved to 0.9 from 2.4. He does have a significant UTI and will discharge home with levofloxacin 750 mg daily for 10 days. Counseled pt/family regarding: lab results, diagnosis, need for follow-up Medical Desision Making - Diagnostic Testing Diagnostic test were ordered, analyzed, and reviewed by me: Yes Radiological Interpretation: Interpreted by me - Risk of complications The pt has a mod risk of morbidity or mortality based on: Need for prescription drug management - Departure Departure Disposition: Home Clinical Impression: UTI (urinary tract infection), Dehydration, Pedraza catheter problem, Anemia Condition: Good Critical Care Time: No Referrals: KENNETH MANUEL DO [Primary Care Provider] - Follow up/PCP as directed Instructions: Urinary Tract Infection, Adult (DC) Prescriptions: Hydrocodone/Acetaminophen [Hydrocodone-Acetamin 5-325 mg] 1 tab PO Q6HPRN PRN 3 Days #12 tablet MDD 4 PRN Reason: Pain levoFLOXacin [Levofloxacin] 750 mg PO DAILY 10 Days #10 tablet
[2023-09-08 13:57] VITALS: TEMP 98.5
[2023-09-08 14:12] LABS: Absolute Neutrophil Ct (ANC) 6.38 x10^3/uL (1.78-5.38); BASOPHIL % 0.6 % (0.2-1.2); Basophil (Absolute #) 0.05 x10^3/uL (0.01-0.08); Eosinophil % 4.6 % (0.8-7.0); Eosinophil (Absolute #) 0.41 x10^3/uL (0.04-0.54); Hematocrit 30.3 % (40.1-51.0); Hemoglobin 9.5 g/dL (13.7-17.5); IMMATURE GRAN # 0.03 x10^3u/L (0.001-0.031); IMMATURE GRAN % 0.3 % (0.001-0.429); Lymphocyte (Absolute #) 1.23 x10^3/uL (1.32-3.57); Lymphocytes % 13.9 % (21.8-53.1); Mean Cell Volume 97.1 fL (79.0-92.2); Mean Corpuscular Hemoglobin 30.4 pg (25.7-32.2); Mean Corpuscular Hgb Concent. 31.4 g/dL (32.3-36.5); Mean Platelet Volume 8.5 fL (9.4-12.4); Monocyte (Absolute #) 0.76 x10^3/uL (0.30-0.82); Monocytes % 8.6 % (5.3-12.2); Platelet Count 376 x10^3/uL (163-337); Red Blood Count 3.12 x10^6/uL (4.63-6.08); Red Cell Distribution Width 16.1 % (11.6-14.4); White Blood Count 8.9 x10^3/uL (4.23-9.07)
[2023-09-08] MEDS ORDERED: MORPHINE SULFATE 2 MG INJ ONE (14:15)
[2023-09-08] MEDS ORDERED: XYLOCAINE 2% Uro-Jet ONE (14:15)
[2023-09-08] MEDS: MORPHINE SULFATE 2 MG INJ IV ONE (14:16)
[2023-09-08] MEDS: XYLOCAINE 2% Uro-Jet TOP ONE (14:16)
[2023-09-08 14:26] LABS: ALBUMIN 3.8 g/dL (3.5-5.0); ANION GAP 16.8 MEQ/L (5-15); BILIRUBIN,TOTAL 0.7 mg/dL (0.2-1.3); Calcium 9.1 mg/dL (8.4-10.2); Creatinine 1 1.37 mg/dL (0.66-1.25); EST GLOMERULAR FILTRATION RATE 53.5 ML/MIN; Potassium 4.2 mmol/L (3.5-5.1)
[2023-09-08] MEDS ORDERED: LEVOFLOXACIN 750MG/150ML D5W 750 MG/150 ML BAG IV ONE (14:33)
[2023-09-08] MEDS: LEVOFLOXACIN 750MG/150ML D5W 750 MG/150 ML BAG IV STA (14:33)
[2023-09-08] MEDS ORDERED: SUBLIMAZE 100 MCG/2 ML ONE (14:36)
[2023-09-08] MEDS: SUBLIMAZE 100 MCG/2 ML IV ONE (14:37)
[2023-09-08 14:55] VITALS: RESP 16
[2023-09-08] MEDS ORDERED: Sodium Chloride 0.9% 1000 ML 1,000 ML ONE (15:05)
[2023-09-08 15:06] LABS: ADD URINE CULTURE? ORDERED SEPARATELY (NO); Appearance Cloudy (Clear); Bacteria None Seen /HPF (None Seen); Bilirubin Negative (Negative); Blood Large (Negative); Epithelial Cells Rare /HPF (None Seen); Glucose, Urine Negative (Negative); Hyaline Casts NONE SEEN /LPF (0-2); Ketones Negative (Negative); Leukocyte Esterase Moderate (Negative); Nitrite Negative (Negative); Protein,Urine Dip 100 (Negative); RBC >100 /HPF (0-5); WBC 51-100 /HPF (0-5)
[2023-09-08] MEDS: Sodium Chloride 0.9% 1000 ML 1,000 ML IV STA (15:06)
[2023-09-08 16:49] VITALS: BP 120/72; PULSE 72; O2SAT 95
== END 2023-09-08 17:00 | disposition home or self-care (01) ==
LOC: ED 13:36
DX: T83.84XA Pain due to genitourinary prosthetic devices, implants and grafts, initial encounter (principal); N39.0 Urinary tract infection, site not specified; E86.0 Dehydration; D64.9 Anemia, unspecified; I10 Essential (primary) hypertension; Z79.891 Long term (current) use of opiate analgesic; Z79.899 Other long term (current) drug therapy
CPT/HCPCS: 36000; 36415; 51702; 80053; 81001; 83605; 85025; 87040; 87077; 87086; 87186; 96360; 96365; 96374; 96375; 99284; J1956; J2270; J3010

== ENCOUNTER 2023-09-16 19:44 | Emergency (ER) | payer MEDICARE ==
[2023-09-16 20:06] VITALS: TEMP 97.8
[2023-09-16] MEDS ORDERED: Zofran 4 MG/2 ML VIAL ONE (20:08)
[2023-09-16] MEDS ORDERED: SUBLIMAZE 100 MCG/2 ML ONE (20:09)
--- NOTE | 2023-09-16 20:12 | ERPHSYRPT ---
- History of Present Illness Time Seen by Provider: 09/16/23 19:53 Historian: patient Exam Limitations: no limitations Patient Subjective Stated Complaint: abd pain onset 0300. multiple infections- FC present on arrival, blood infection and bladder infection per patient; blood cx drawn at pcp office Triage Nursing Assessment: pt to ED c/o sharp intense abd pain, 10/10. subsides temporarily with BMs but returns after about 1 hour. FC present on arrival. "feels like gas that cant get out." denies NVD. seeing Dr Rainey for urology, and Fatou for sepsis- scheduled to see fatou in 3 days. Physician History: For the past 17 hours pt has had intermittent suprapubic pain up to 10/10 in severity. Pt also states he has had blood in his leg bag today; denies fever, chills, chest pain, shortness of air, nausea, vomiting. LBM was today without blood. Allergies/Adverse Reactions: No Known Drug Allergies Allergy (Verified 09/16/23 19:51) Home Medications: Losartan Potassium 50 mg [Cozaar 50 MG] 50 mg PO DAILY 08/17/21 [History] Hx Tetanus, Diphtheria Vaccination/Date Given: No Hx Influenza Vaccination/Date Given: No Hx Pneumococcal Vaccination/Date Given: No Travel Risk - International Travel Have you traveled outside of the country in past 3 weeks: No - Emerging Infectious Disease Are you exhibiting symptoms associated with any current EIDs: Yes Symptoms: Abdominal Pain - Review of Systems Constitutional: No Fever, No Chills Respiratory: No Dyspnea Cardiac: No Chest Pain Abdominal/Gastrointestinal: Abdominal Pain, No Nausea, No Vomiting, No Diarrhea Genitourinary Symptoms: Hematuria Neurological: No Headache - Past Medical History Pertinent Past Medical History: Yes Cardiac History: Hypertension History: Other Other Medical History: chronic right shoulder pain and back pain, kidney stones. enlarged prostate - Past Surgical History Past Surgical History: Yes Musculoskeletal: Other Other Surgical History: back injections, kidney stone removal 07/09/23 - Social History Smoking Status: Never smoker Exposure to second hand smoke: No Drug Use: none Patient Lives Alone: No - Social Determinants of Health Will the patient participate in the screening: Declined to provide - Nursing Vital Signs Nursing Vital Signs: Initial Vital Signs Temperature 97.8 F 09/16/23 19:53 Pulse Rate 100 H 09/16/23 19:53 Respiratory Rate 28 H 09/16/23 19:53 Blood Pressure 133/71 09/16/23 19:53 O2 Sat by Pulse Oximetry 100 09/16/23 19:53 Pain Scale Pain Intensity 5 - Physical Exam General Appearance: alert Eye Exam: eyes nml inspection Ears, Nose, Throat Exam: TMs normal, pharynx normal Neck Exam: normal inspection Respiratory Exam: lungs clear Cardiovascular Exam: normal heart sounds Gastrointestinal/Abdomen Exam: normal bowel sounds Back Exam: normal inspection Extremity Exam: swelling (+1 edema of both ankles) Neurologic Exam: alert, cooperative Skin Exam: warm, dry SpO2 Interpretation: normal SpO2: 100 O2 Delivery: Room Air - Course Nursing assessment & vital signs reviewed: Yes - CT Exams Abdomen/Pelvis CT Interpretation: Tele-radiologist Report (Interval worsening of moderate bilateral hydroureteronephrosis and bilateral perinephric fat stranding since July 2023, possibly due to mild interval worsening of back pressure changes as a result of chronic bladder outlet obstruction. See rest of report.) Ordered Tests: Active Orders 24 hr Category Date Time Status Thomas [Catheter-Leonard Thomas] STAT Care 09/17/23 00:45 Active IV Insertion STAT Care 09/16/23 20:09 Active ABDOMEN AND PELVIS W/0 CONTRAS [CT] Stat Exams 09/16/23 20:10 Completed AMYLASE Stat Lab 09/16/23 20:15 Completed CBC W DIFF Stat Lab 09/16/23 20:15 Completed CMP Stat Lab 09/16/23 20:15 Completed LIPASE Stat Lab 09/16/23 20:15 Completed MAGNESIUM Stat Lab 09/16/23 20:15 Completed Medication Summary Discontinued Medications Generic Name Dose Route Start Last Admin Trade Name Stella PRN Reason Stop Dose Admin Fentanyl Citrate Confirm 09/16/23 20:09 Fentanyl Citrate 100 Mcg/2 Ml* Vial Administered 09/16/23 20:10 Dose 100 mcg .ROUTE .STK-MED ONE Fentanyl Citrate 100 mcg 09/16/23 20:09 09/16/23 20:14 Fentanyl Citrate 100 Mcg/2 Ml* Vial IV 09/16/23 20:10 100 mcg STAT ONE Administration Sodium Chloride 1,000 mls @ 999 mls/hr 09/16/23 20:09 09/16/23 21:41 Sodium Chloride 0.9% 1000 Ml IV 09/16/23 21:09 Infused .Q1H1M STA Infusion Sodium Chloride Confirm 09/16/23 20:13 Sodium Chloride 0.9% 1000 Ml Administered 09/16/23 20:14 Dose 1,000 mls @ ud .ROUTE .STK-MED ONE Ceftriaxone Sodium 1 gm in 100 mls @ 200 mls/hr 09/17/23 01:38 09/17/23 02:51 Rocephin 1 Gm / 100 Ml Nacl IV 09/17/23 02:07 Infused STAT ONE Infusion Ceftriaxone Sodium Confirm 09/17/23 02:19 Rocephin 1 Gm / 100 Ml Nacl Administered 09/17/23 02:20 Dose 1 gm in 100 mls @ ud IV .STK-MED ONE Ketorolac Tromethamine 15 mg 09/16/23 21:23 09/16/23 21:27 Ketorolac Tromethamine 30 Mg/Ml Inj IV 09/16/23 21:24 15 mg STAT ONE Administration Ketorolac Tromethamine Confirm 09/16/23 21:26 Ketorolac Tromethamine 30 Mg/Ml Inj Administered 09/16/23 21:27 Dose 30 mg .ROUTE .STK-MED ONE Ketorolac Tromethamine Confirm 09/16/23 21:26 Ketorolac Tromethamine 30 Mg/Ml Inj Administered 09/16/23 21:27 Dose 30 mg .ROUTE .STK-MED ONE Ondansetron HCl Confirm 09/16/23 20:08 Ondansetron Hcl 4 Mg/2 Ml Vial Administered 09/16/23 20:09 Dose 4 mg .ROUTE .STK-MED ONE Ondansetron HCl 4 mg 09/16/23 20:09 09/16/23 20:13 Ondansetron Hcl 4 Mg/2 Ml Vial IV 09/16/23 20:10 4 mg STAT ONE Administration Lab/Rad Data: Laboratory Result Diagrams 09/16/23 20:15 09/16/23 20:15 Laboratory Results 09/16/23 09/16/23 09/16/23 Range/Units 20:15 20:15 20:15 WBC 11.2 H (4.23-9.07) x10^3/uL RBC 3.38 L (4.63-6.08) x10^6/uL Hgb 10.3 L (13.7-17.5) g/dL Hct 32.3 L (40.1-51.0) % MCV 95.6 H (79.0-92.2) fL MCH 30.5 (25.7-32.2) pg MCHC 31.9 L (32.3-36.5) g/dL RDW 16.5 H (11.6-14.4) % Plt Count 391 H (163-337) x10^3/uL MPV 8.2 L (9.4-12.4) fL Gran % 86.8 H (34.0-67.9) % Immature Gran % (Auto) 0.3 (0.001-0.429) % Nucleat RBC Rel Count 0.0 (0.00-0.2) % Eos # (Auto) 0.06 (0.04-0.54) x10^3/uL Immature Gran # (Auto) 0.03 (0.001-0.031) x10^3u/L Absolute Lymphs (auto) 0.62 L (1.32-3.57) x10^3/uL Absolute Monos (auto) 0.72 (0.30-0.82) x10^3/uL Absolute Nucleated RBC 0.00 (0.00-0.012) x10^3u/L Lymphocytes % 5.6 L (21.8-53.1) % Monocytes % 6.5 (5.3-12.2) % Eosinophils % 0.5 L (0.8-7.0) % Basophils % 0.3 (0.2-1.2) % Absolute Granulocytes 9.70 H (1.78-5.38) x10^3/uL Basophils # 0.03 (0.01-0.08) x10^3/uL Sodium 134 L (135-145) mmol/L Potassium 4.8 (3.5-5.1) mmol/L Chloride 102 (98-107) mmol/L Carbon Dioxide 19 L (22-30) mmol/L Anion Gap 18.5 H (5-15) MEQ/L BUN 36 H (9-20) mg/dL Creatinine 1.71 H (0.66-1.25) mg/dL Estimated GFR 41.0 ML/MIN Glucose 140 H (74-106) mg/dL Calcium 9.9 (8.4-10.2) mg/dL Magnesium 2.0 (1.6-2.3) mg/dL Total Bilirubin 1.10 (0.2-1.3) mg/dL AST 33 (17-59) U/L ALT 30 (0-50) U/L Alkaline Phosphatase 93 (38-126) U/L Serum Total Protein 6.9 (6.3-8.2) g/dL Albumin 3.8 (3.5-5.0) g/dL Amylase 127 H (30-110) U/L Lipase 157 (23-300) U/L Urine Color (Yellow) Urine Appearance (Clear) Urine pH (4.6-8.0) Ur Specific [place] (1.005-1.030) Urine Protein (Negative) Urine Glucose (UA) (Negative) mg/dL Urine Ketones (Negative) Urine Blood (Negative) Urine Nitrite (Negative) Urine Bilirubin (Negative) Urine Urobilinogen (0.2) mg/dL Ur Leukocyte Esterase (Negative) U Hyaline Cast (Auto) (0-2) /LPF Urine Microscopic RBC (0-5) /HPF Urine Microscopic WBC (0-5) /HPF Ur Epithelial Cells (None Seen) /HPF Urine Bacteria (None Seen) /HPF Urine Culture Reflexed (NO) 09/16/23 Range/Units 00:57 WBC (4.23-9.07) x10^3/uL RBC (4.63-6.08) x10^6/uL Hgb (13.7-17.5) g/dL Hct (40.1-51.0) % MCV (79.0-92.2) fL MCH (25.7-32.2) pg MCHC (32.3-36.5) g/dL RDW (11.6-14.4) % Plt Count (163-337) x10^3/uL MPV (9.4-12.4) fL Gran % (34.0-67.9) % Immature Gran % (Auto) (0.001-0.429) % Nucleat RBC Rel Count (0.00-0.2) % Eos # (Auto) (0.04-0.54) x10^3/uL Immature Gran # (Auto) (0.001-0.031) x10^3u/L Absolute Lymphs (auto) (1.32-3.57) x10^3/uL Absolute Monos (auto) (0.30-0.82) x10^3/uL Absolute Nucleated RBC (0.00-0.012) x10^3u/L Lymphocytes % (21.8-53.1) % Monocytes % (5.3-12.2) % Eosinophils % (0.8-7.0) % Basophils % (0.2-1.2) % Absolute Granulocytes (1.78-5.38) x10^3/uL Basophils # (0.01-0.08) x10^3/uL Sodium (135-145) mmol/L Potassium (3.5-5.1) mmol/L Chloride (98-107) mmol/L Carbon Dioxide (22-30) mmol/L Anion Gap (5-15) MEQ/L BUN (9-20) mg/dL Creatinine (0.66-1.25) mg/dL Estimated GFR ML/MIN Glucose (74-106) mg/dL Calcium (8.4-10.2) mg/dL Magnesium (1.6-2.3) mg/dL Total Bilirubin (0.2-1.3) mg/dL AST (17-59) U/L ALT (0-50) U/L Alkaline Phosphatase (38-126) U/L Serum Total Protein (6.3-8.2) g/dL Albumin (3.5-5.0) g/dL Amylase (30-110) U/L Lipase (23-300) U/L Urine Color Yellow (Yellow) Urine Appearance Clear (Clear) Urine pH 7.0 (4.6-8.0) Ur Specific [place] 1.010 (1.005-1.030) Urine Protein Trace A (Negative) Urine Glucose (UA) Negative (Negative) mg/dL Urine Ketones Negative (Negative) Urine Blood Small A (Negative) Urine Nitrite Negative (Negative) Urine Bilirubin Negative (Negative) Urine Urobilinogen 0.2 (0.2) mg/dL Ur Leukocyte Esterase Small A (Negative) U Hyaline Cast (Auto) NONE SEEN (0-2) /LPF Urine Microscopic RBC 21-50 A (0-5) /HPF Urine Microscopic WBC 11-20 A (0-5) /HPF Ur Epithelial Cells None Seen (None Seen) /HPF Urine Bacteria None Seen (None Seen) /HPF Urine Culture Reflexed YES (NO) - Progress Progress: unchanged Will see patient in: other (Dr. Vance([id number]) accepted pt for transfer to [facility].) Counseled pt/family regarding: lab results, diagnosis, rad results Medical Desision Making - Diagnostic Testing Diagnostic test were ordered, analyzed, and reviewed by me: Yes Radiological Interpretation: Teleradiologist Report - Departure Departure Disposition: Transfer ([facility]) Clinical Impression: Abdominal pain, BIlateral hydroureteronephrosis, UTI (urinary tract infection) Condition: Stable Critical Care Time: No Referrals: KENNETH MANUEL DO [Primary Care Provider] - Follow up/PCP as directed
[2023-09-16] MEDS: Sodium Chloride 0.9% 1000 ML 1,000 ML IV STA (20:13)
[2023-09-16] MEDS: Zofran 4 MG/2 ML VIAL IV ONE (20:13)
[2023-09-16] MEDS ORDERED: Sodium Chloride 0.9% 1000 ML 1,000 ML ONE (20:13)
[2023-09-16] MEDS: SUBLIMAZE 100 MCG/2 ML IV ONE (20:14)
[2023-09-16 20:20] LABS: BASOPHIL % 0.3 % (0.2-1.2); Basophil (Absolute #) 0.03 x10^3/uL (0.01-0.08); Eosinophil % 0.5 % (0.8-7.0); Eosinophil (Absolute #) 0.06 x10^3/uL (0.04-0.54); Hematocrit 32.3 % (40.1-51.0); Hemoglobin 10.3 g/dL (13.7-17.5); IMMATURE GRAN # 0.03 x10^3u/L (0.001-0.031); IMMATURE GRAN % 0.3 % (0.001-0.429); Lymphocyte (Absolute #) 0.62 x10^3/uL (1.32-3.57); Lymphocytes % 5.6 % (21.8-53.1); Mean Cell Volume 95.6 fL (79.0-92.2); Mean Corpuscular Hemoglobin 30.5 pg (25.7-32.2); Mean Corpuscular Hgb Concent. 31.9 g/dL (32.3-36.5); Mean Platelet Volume 8.2 fL (9.4-12.4); Monocyte (Absolute #) 0.72 x10^3/uL (0.30-0.82); Monocytes % 6.5 % (5.3-12.2); Neutrophil % 86.8 % (34.0-67.9); Platelet Count 391 x10^3/uL (163-337); Red Blood Count 3.38 x10^6/uL (4.63-6.08); Red Cell Distribution Width 16.5 % (11.6-14.4); White Blood Count 11.2 x10^3/uL (4.23-9.07)
[2023-09-16 20:33] LABS: ALBUMIN 3.8 g/dL (3.5-5.0); ANION GAP 18.5 MEQ/L (5-15); BILIRUBIN,TOTAL 1.1 mg/dL (0.2-1.3); Calcium 9.9 mg/dL (8.4-10.2); Creatinine 1 1.71 mg/dL (0.66-1.25); Potassium 4.8 mmol/L (3.5-5.1); Total Protein 6.9 g/dL (6.3-8.2)
[2023-09-16] MEDS ORDERED: TORAdol 30 mg Injection ONE ×2 (21:26)
[2023-09-16] MEDS: TORAdol 30 mg Injection IV ONE (21:27)
--- NOTE | 2023-09-16 22:31 | XRAY ---
CLINICAL HISTORY: abdominal pain COMPARISON: Prior CT abdomen pelvis study dated 08/03/2023. TECHNIQUE: CT abdomen and pelvis was performed without IV contrast. Coronal and Sagittal reformat were obtained. One of the following dose reduction techniques was utilized for this exam: Automated exposure control, adjustment of the mA and/or kV according to patient size, and use of iterative reconstruction. FINDINGS: The visualized lung bases are clear. Evaluation of the abdominal and pelvic visceral organs is limited without intravenous contrast. The unenhanced pancreas, and bilateral adrenal glands are grossly unremarkable. The gallbladder is present. Redemonstration of a hypodense area in segment II of the left hepatic lobe measuring 23 x 32 mm cannot be further characterized on this unenhanced examination. Liver otherwise appear unremarkable. Calcified granulomas noted in spleen. Well defined heterogeneous fat attenuating lesion is again noted in relation to the upper pole of right kidney measuring 30 mm x 19 mm. There is interval increase in the fat component and relatively less solid component in the present study. The kidneys are normal in size. Bilateral renal calyceal calculi noted, largest 5 mm x 5 mm in right kidney and 14 mm x 10 mm in left kidney. Bilateral kidneys show moderate hydroureteronephrosis, with dilated and tortuous ureters. There is mild bilateral perinephric stranding. There is interval increase in bilateral hydroureteronephrosis, mainly on the left side and slight interval worsening of perinephric fat stranding since July 2023. The ureters do not show any hyperdense calculi within. No adenopathy or fluid collections are seen. No evidence of focal or diffuse bowel wall thickening or evidence of bowel obstruction is seen. The aorta is normal in caliber. Appendicoliths are identified without features of acute appendicitis. The urinary bladder is markedly distended with mild thickened seymour, measuring upto 6 mm and trabeculations. These findings are possibly secondary to chronic bladder outlet obstruction. A 0.6 cm calculus is seen in the dependent wall of the urinary bladder, adjacent to the left ureterovesical junction. Moderate prostatomegaly noted with hypertrophied median gland projecting into urinary bladder. Lumbar spine shows levoscoliosis. Diffuse degenerative changes noted in thoracolumbar vertebra. Stable small fat containing umbilical hernia through 13 mm anterior abdominal wall defect. IMPRESSION: Interval worsening of moderate bilateral hydroureteronephrosis and bilateral perinephric fat stranding since July 2023, possibly due to mild interval worsening of back pressure changes as a result of chronic bladder outlet obstruction. Appendicoliths are identified without features of acute appendicitis. Prostatomegaly. 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 Unremarkable bilateral adrenals. Stable chronic findings as described above. Electronically Signed by: Barry Mandujano MD. (09/16/2023 22:28:29 EDT)
[2023-09-17 01:25] LABS: ADD URINE CULTURE? YES (NO); Appearance Clear (Clear); Bacteria None Seen /HPF (None Seen); Bilirubin Negative (Negative); Blood Small (Negative); Epithelial Cells None Seen /HPF (None Seen); Glucose, Urine Negative (Negative); Hyaline Casts NONE SEEN /LPF (0-2); Ketones Negative (Negative); Leukocyte Esterase Small (Negative); Nitrite Negative (Negative); Protein,Urine Dip Trace (Negative); RBC 21-50 /HPF (0-5); Urobilinogen 0.2 mg/dL (0.2)
[2023-09-17] MEDS ORDERED: ROCEPHIN 1 GM / 100 ML NaCl 1 GM/100 ML IVPB IV ONE (02:19)
[2023-09-17] MEDS: ROCEPHIN 1 GM / 100 ML NaCl 1 GM/100 ML IVPB IV ONE (02:21)
[2023-09-17 04:02] VITALS: BP 103/45; PULSE 62; RESP 19; O2SAT 97
== END 2023-09-17 04:45 | disposition short-term general hospital (02) ==
LOC: ED 19:44
DX: N13.30 Unspecified hydronephrosis (principal); R10.2 Pelvic and perineal pain; N39.0 Urinary tract infection, site not specified; R10.9 Unspecified abdominal pain; I10 Essential (primary) hypertension; Z79.899 Other long term (current) drug therapy
CPT/HCPCS: 36000; 36415; 51702; 74176; 80053; 81001; 82150; 83690; 83735; 85025; 87086; 96365; 96374; 96375; 99285; J0696; J1885; J2405; J3010

== ENCOUNTER 2024-07-02 15:22 | Emergency (ER) | payer MEDICARE ==
--- NOTE | 2024-07-02 16:07 | ERPHSYRPT ---
- History of Present Illness Time Seen by Provider: 07/02/24 16:07 Source: patient, family Exam Limitations: no limitations Physician History: This is a 78-year-old white male patient who arrives by private vehicle directly from his primary care physician's office, Dr. Manuel secondary to feeling mildly short of breath, has sore throat and weak as well as of lower than typical blood pressure for him. There is a concern that he may be dehydrated as well. Patient has an enlarged prostate and has been undergoing evaluation from urology for the last several weeks. He is been seen at [facility] and underwent a special urologic procedure within the last couple of weeks. The patient was told that he could have the Thomas catheter removed in certain number of days post procedure. Several attempts were made in the last several days to take the Thomas catheter out, however, he continued to have urinary retention and therefore, ultimately, he requested a three-way Thomas catheter to be placed which was placed a few days ago and it seems to be functioning well. Patient states that he has lost his appetite and he is lost 10 pounds in the last 2 weeks. He is not currently on antibiotics. His vital signs on arrival to the emergency department show systolic blood pressure 125. He is afebrile. His room air oxygen saturation is 97%. He denies chest pain. He has no abdominal pain. Timing/Duration: today Severity of Dyspnea-Max: mild Severity of Dyspnea-Current: mild Associated Symptoms: loss of appetite, weakness, No cough, No chest pain/discomfort Allergies/Adverse Reactions: No Known Drug Allergies Allergy (Verified 09/16/23 19:51) Home Medications: Losartan Potassium 50 mg [Cozaar 50 MG] 50 mg PO DAILY 08/17/21 [History] Hx Tetanus, Diphtheria Vaccination/Date Given: No Hx Influenza Vaccination/Date Given: No Hx Pneumococcal Vaccination/Date Given: No Travel Risk - International Travel Have you traveled outside of the country in past 3 weeks: No - Emerging Infectious Disease Are you exhibiting symptoms associated with any current EIDs: Yes Symptoms: Abdominal Pain - Review of Systems Constitutional: Weakness Eyes: No Symptoms Ears, Nose, & Throat: No Symptoms Respiratory: Dyspnea Cardiac: No Symptoms (Mild) Abdominal/Gastrointestinal: No Symptoms Genitourinary Symptoms: No Symptoms Musculoskeletal: No Symptoms Skin: No Symptoms Neurological: No Symptoms Psychological: No Symptoms Endocrine: No Symptoms Hematologic/Lymphatic: No Symptoms Immunological/Allergic: No Symptoms All Other Systems: Reviewed and Negative - Past Medical History Pertinent Past Medical History: Yes Cardiac History: Hypertension History: Other Other Medical History: chronic right shoulder pain and back pain, kidney stones. enlarged prostate - Past Surgical History Past Surgical History: Yes Musculoskeletal: Other Other Surgical History: back injections, kidney stone removal 07/09/23 - Social History Smoking Status: Never smoker Exposure to second hand smoke: No Drug Use: none Patient Lives Alone: No - Social Determinants of Health Will the patient participate in the screening: Declined to provide - Nursing Vital Signs Nursing Vital Signs: Initial Vital Signs Temperature 97.4 F 07/02/24 16:05 Pulse Rate 86 07/02/24 16:05 Respiratory Rate 16 07/02/24 16:05 Blood Pressure 125/69 07/02/24 16:05 O2 Sat by Pulse Oximetry 97 07/02/24 16:05 Pain Scale Pain Intensity 4 - Physical Exam General Appearance: no apparent distress, alert, anxiety, cachetic Eye Exam: PERRL/EOMI, eyes nml inspection Ears, Nose, Throat Exam: hearing grossly normal, normal ENT inspection, normal pharynx (Dry mouth) Neck Exam: normal inspection, non-tender, supple, full range of motion Respiratory Exam: normal breath sounds, lungs clear, airway intact, No chest tenderness, No respiratory distress Cardiovascular/Chest Exam: normal heart sounds, regular rate/rhythm Abdominal/Gastrointestinal Exam: soft, normal bowel sounds, No tenderness Extremity Exam: non-tender, normal range of motion, normal inspection, normal capillary refill, no calf tenderness, no pedal edema, pelvis stable Neurologic Exam: alert, oriented x 3, cooperative, construction management assistant II-XII nml as tested, nml cerebellar function, sensation nml, disoriented Skin Exam: warm, dry, pale Lymphatic Exam: No adenopathy SpO2 Interpretation: normal O2 Delivery: Room Air - Course Nursing assessment & vital signs reviewed: Yes EKG Interpreted by Me: RATE (87), A-fib, Left [place] Deviation (Borderline), NORMAL INTERVALS, NORMAL QRS, Other (PVCs. QTc 403. No acute ischemia on today's twelve-lead EKG.) Ordered Tests: Active Orders 24 hr Category Date Time Status EKG-ER Only STAT Care 07/02/24 16:24 Active IV Insertion STAT Care 07/02/24 16:24 Active Pulse Oximetry (ED) STAT Care 07/02/24 16:24 Active CHEST 1 VIEW (PORTABLE) Stat Exams 07/02/24 16:25 Taken BLOOD CULTURE Stat Lab 07/02/24 16:50 Received CBC W DIFF Stat Lab 07/02/24 16:15 Completed CMP Stat Lab 07/02/24 16:15 Completed CULTURE,URINE Stat Lab 07/02/24 18:03 Received Lactic Acid Stat Lab 07/02/24 16:35 Completed MAGNESIUM Stat Lab 07/02/24 16:15 Completed NT PRO BNPII Stat Lab 07/02/24 16:45 Completed TROPONIN Q4H Lab 07/02/24 16:15 Completed TROPONIN Q4H Lab 07/02/24 20:30 Ordered TROPONIN Q4H Lab 07/03/24 00:30 Ordered UA W/RFX UR CULTURE Stat Lab 07/02/24 18:03 Ordered Medication Summary Generic Name Dose Route Start Last Admin Trade Name Freq PRN Reason Stop Dose Admin Levofloxacin 500 mg 07/02/24 19:23 Levofloxacin 500 Mg Tablet PO 07/02/24 19:24 STAT ONE Discontinued Medications Generic Name Dose Route Start Last Admin Trade Name Freq PRN Reason Stop Dose Admin Sodium Chloride 1,000 mls @ 999 mls/hr 07/02/24 16:24 07/02/24 18:07 Sodium Chloride 0.9% 1000 Ml IV 07/02/24 17:24 Infused .Q1H1M STA Infusion Sodium Chloride Confirm 07/02/24 16:38 Sodium Chloride 0.9% 1000 Ml Administered 07/02/24 16:39 Dose 1,000 mls @ ud .ROUTE .K-MED ONE Lab/Rad Data: Laboratory Result Diagrams 07/02/24 16:15 07/02/24 16:15 Laboratory Results 07/02/24 07/02/24 07/02/24 Range/Units 16:55 16:45 16:35 WBC (4.23-9.07) x10^3/uL RBC (4.63-6.08) x10^6/uL Hgb (13.7-17.5) g/dL Hct (40.1-51.0) % MCV (79.0-92.2) fL MCH (25.7-32.2) pg MCHC (32.3-36.5) g/dL RDW (11.6-14.4) % Plt Count (163-337) x10^3/uL MPV (9.4-12.4) fL Gran % (34.0-67.9) % Immature Gran % (Auto) (0.001-0.429) % Nucleat RBC Rel Count (0.00-0.2) % Eos # (Auto) (0.04-0.54) x10^3/uL Immature Gran # (Auto) (0.001-0.031) x10^3u/L Absolute Lymphs (auto) (1.32-3.57) x10^3/uL Absolute Monos (auto) (0.30-0.82) x10^3/uL Absolute Nucleated RBC (0.00-0.012) x10^3u/L Lymphocytes % (21.8-53.1) % Monocytes % (5.3-12.2) % Eosinophils % (0.8-7.0) % Basophils % (0.2-1.2) % Absolute Granulocytes (1.78-5.38) x10^3/uL Basophils # (0.01-0.08) x10^3/uL Sodium (135-145) mmol/L Potassium (3.5-5.1) mmol/L Chloride (98-107) mmol/L Carbon Dioxide (22-30) mmol/L Anion Gap (5-15) MEQ/L BUN (9-20) mg/dL Creatinine (0.66-1.25) mg/dL Estimated GFR ML/MIN Glucose (74-106) mg/dL Lactic Acid 1.6 (0.4-2.0) Calcium (8.4-10.2) mg/dL Magnesium (1.6-2.3) mg/dL Total Bilirubin (0.2-1.3) mg/dL AST (17-59) U/L ALT (0-50) U/L Alkaline Phosphatase (38-126) U/L Troponin I (0.000-0.033) ng/mL NT-Pro-B Natriuret Pep 139 (<300) pg/mL Serum Total Protein (6.3-8.2) g/dL Albumin (3.5-5.0) g/dL Influenza Type A Ag NEGATIVE (NEGATIVE) Influenza Type B Ag NEGATIVE (NEGATIVE) RSV (PCR) NEGATIVE (NEGATIVE) SARS-CoV-2 (PCR) NEGATIVE (NEGATIVE) 07/02/24 07/02/24 07/02/24 Range/Units 16:15 16:15 16:15 WBC 11.0 H (4.23-9.07) x10^3/uL RBC 4.50 L (4.63-6.08) x10^6/uL Hgb 14.0 (13.7-17.5) g/dL Hct 42.3 (40.1-51.0) % MCV 94.0 H (79.0-92.2) fL MCH 31.1 (25.7-32.2) pg MCHC 33.1 (32.3-36.5) g/dL RDW 14.1 (11.6-14.4) % Plt Count 374 H (163-337) x10^3/uL MPV 9.2 L (9.4-12.4) fL Gran % 77.9 H (34.0-67.9) % Immature Gran % (Auto) 0.4 (0.001-0.429) % Nucleat RBC Rel Count 0.0 (0.00-0.2) % Eos # (Auto) 0.12 (0.04-0.54) x10^3/uL Immature Gran # (Auto) 0.04 H (0.001-0.031) x10^3u/L Absolute Lymphs (auto) 1.15 L (1.32-3.57) x10^3/uL Absolute Monos (auto) 1.05 H (0.30-0.82) x10^3/uL Absolute Nucleated RBC 0.00 (0.00-0.012) x10^3u/L Lymphocytes % 10.5 L (21.8-53.1) % Monocytes % 9.6 (5.3-12.2) % Eosinophils % 1.1 (0.8-7.0) % Basophils % 0.5 (0.2-1.2) % Absolute Granulocytes 8.57 H (1.78-5.38) x10^3/uL Basophils # 0.05 (0.01-0.08) x10^3/uL Sodium 137 (135-145) mmol/L Potassium 4.6 (3.5-5.1) mmol/L Chloride 104 (98-107) mmol/L Carbon Dioxide 21 L (22-30) mmol/L Anion Gap 17.4 H (5-15) MEQ/L BUN 32 H (9-20) mg/dL Creatinine 1.44 H (0.66-1.25) mg/dL Estimated GFR 50.4 ML/MIN Glucose 103 (74-106) mg/dL Lactic Acid (0.4-2.0) Calcium 9.9 (8.4-10.2) mg/dL Magnesium 2.0 (1.6-2.3) mg/dL Total Bilirubin 1.70 H (0.2-1.3) mg/dL AST 26 (17-59) U/L ALT 19 (0-50) U/L Alkaline Phosphatase 107 (38-126) U/L Troponin I < 0.012 (0.000-0.033) ng/mL NT-Pro-B Natriuret Pep (<300) pg/mL Serum Total Protein 7.0 (6.3-8.2) g/dL Albumin 4.4 (3.5-5.0) g/dL Influenza Type A Ag (NEGATIVE) Influenza Type B Ag (NEGATIVE) RSV (PCR) (NEGATIVE) SARS-CoV-2 (PCR) (NEGATIVE) - Progress Progress: improved, re-examined Air Movement: good Progress Note: 07/02/24 17:24 My medical decision making and the assignment of moderate complexity of this patient's medical issue today is based on review of the patient's past medical history, review the patient's medication list, review of patient drug allergy list, history present illness and physical findings on examination. The workup in this patient includes placement of intravenous line, infusion of normal saline solution, CBC, CMP, magnesium level, troponin level, twelve-lead EKG, urinalysis, BNP, chest x-ray, viral swabs. Differential diagnosis includes but is not limited to anemia, dehydration, urinary tract infection, electrolyte abnormalities, myocardial infarction, CHF 07/02/24 19:24 Patient has no chest pain. Patient has no shortness of breath at this time. A repeat twelve-lead EKG was performed at 1917 and I interpreted this repeat twelve-lead EKG. The patient's heart rate is 71 bpm there is normal sinus rhythm. There is borderline prolonged QT interval and borderline left axis deviation. The QRS is normal. QTc is 399 and there is no evidence of any acute ischemia. It appears to me that the leads were not placed in the appropriate positions on this patient and when we repositioned the leads for repeat twelve-lead EKG, there was no longer atrial fibrillation. I interpreted the patient's preliminary report of the chest x-ray. It was compared to similar study dated 04/20/2021. There does not appear to be any changes. There is no acute cardiopulmonary process. He is aware that this is a preliminary report only and that there will be a repeat chest x-ray tomorrow. If the interpretation tonight it differs from the radiologist, the patient will receive a call from our department. Any respiratory or urinary infection will be covered with the Levaquin antibiotic. He is aware of this. I had a long talk with the patient. Patient prefers to go home. He has dogs to attend to he said. He states specifically that he is feeling better. He also states that he is hungry which he was not before he came in to the hospital. He would like some more intravenous fluid. We discussed the treatment of his chronic, recurrent urinary tract infection. He would like Levaquin antibiotic since he was on a different antibiotic a couple of weeks ago. He states that Dr. Manuel likes to alternate him. I agree with this plan. We will discharge him to home after the 500 mL normal saline intravenous bolus. 07/02/24 19:30 I reviewed the study results with the patient. Blood Culture(s) Obtained: Yes Antibiotics given: Yes Counseled pt/family regarding: lab results, diagnosis, need for follow-up, rad results Medical Desision Making - Diagnostic Testing Diagnostic test were ordered, analyzed, and reviewed by me: Yes Radiological Interpretation: Interpreted by me, Teleradiologist Report - Risk of complications The pt has a mod risk of morbidity or mortality based on: Need for prescription drug management - Departure Departure Disposition: Home Clinical Impression: Urinary tract infection, Dehydration, mild, Shortness of breath Condition: Stable Critical Care Time: No Referrals: KENNETH MANUEL DO [Primary Care Provider, [facility]] - Follow up/PCP as directed Additional Instructions: Drink plenty of fluids. Take all your medications as prescribed. Call your primary care provider tomorrow, 07/03/2024, to make arrangements for follow-up appointment for further evaluation management. Prescriptions: Levofloxacin [Levaquin 500 MG Tablet] 500 mg PO DAILY #7 tablet
[2024-07-02 16:21] VITALS: TEMP 97.4
[2024-07-02] MEDS ORDERED: Sodium Chloride 0.9% 1000 ML 1,000 ML ONE (16:38)
[2024-07-02] MEDS: Sodium Chloride 0.9% 1000 ML 1,000 ML IV STA (16:39)
[2024-07-02 16:42] LABS: Absolute Neutrophil Ct (ANC) 8.57 x10^3/uL (1.78-5.38); BASOPHIL % 0.5 % (0.2-1.2); Basophil (Absolute #) 0.05 x10^3/uL (0.01-0.08); Eosinophil % 1.1 % (0.8-7.0); Eosinophil (Absolute #) 0.12 x10^3/uL (0.04-0.54); Hematocrit 42.3 % (40.1-51.0); IMMATURE GRAN # 0.04 x10^3u/L (0.001-0.031); IMMATURE GRAN % 0.4 % (0.001-0.429); Lymphocyte (Absolute #) 1.15 x10^3/uL (1.32-3.57); Lymphocytes % 10.5 % (21.8-53.1); Mean Corpuscular Hemoglobin 31.1 pg (25.7-32.2); Mean Corpuscular Hgb Concent. 33.1 g/dL (32.3-36.5); Mean Platelet Volume 9.2 fL (9.4-12.4); Monocyte (Absolute #) 1.05 x10^3/uL (0.30-0.82); Monocytes % 9.6 % (5.3-12.2); Neutrophil % 77.9 % (34.0-67.9); Platelet Count 374 x10^3/uL (163-337); Red Cell Distribution Width 14.1 % (11.6-14.4)
[2024-07-02 16:56] LABS: ALBUMIN 4.4 g/dL (3.5-5.0); ANION GAP 17.4 MEQ/L (5-15); BILIRUBIN,TOTAL 1.7 mg/dL (0.2-1.3); Calcium 9.9 mg/dL (8.4-10.2); Creatinine 1 1.44 mg/dL (0.66-1.25); EST GLOMERULAR FILTRATION RATE 50.4 ML/MIN; Potassium 4.6 mmol/L (3.5-5.1)
[2024-07-02 17:37] LABS: INFLUENZA A NEGATIVE (NEGATIVE); INFLUENZA B NEGATIVE (NEGATIVE); RESPIRATORY SYNCTIAL VIRUS NEGATIVE (NEGATIVE); SARS-CoV-2 Xpert Express NEGATIVE (NEGATIVE)
[2024-07-02] MEDS ORDERED: Sodium Chloride 0.9% 500 ML 500 ML IV ONE (19:26)
[2024-07-02] MEDS ORDERED: Levofloxacin 500 MG Tablet ONE (19:26)
[2024-07-02] MEDS: Levofloxacin 500 MG Tablet PO ONE (19:28)
[2024-07-02] MEDS: Sodium Chloride 0.9% 500 ML 500 ML IV ONE (19:29)
[2024-07-02 20:05] VITALS: BP 139/104; PULSE 58; RESP 19; O2SAT 100
--- NOTE | 2024-07-03 06:43 | XRAY ---
Indication: Cough. Comparison: April 20, 2021 Portable chest again hyperinflated and clear. Heart not enlarged again with tortuous descending aorta. Bony thorax intact again with osteopenia, degenerative changes, and scoliosis. No new/acute findings.
== END 2024-07-02 20:10 | disposition home or self-care (01) ==
LOC: ED 15:22
DX: N39.0 Urinary tract infection, site not specified (principal); E86.0 Dehydration; R06.02 Shortness of breath; J02.9 Acute pharyngitis, unspecified; R53.1 Weakness; I10 Essential (primary) hypertension; Z79.899 Other long term (current) drug therapy
CPT/HCPCS: 0241U; 36415; 71045; 80053; 83605; 83735; 83880; 84484; 85025; 87040; 87077; 87086; 87186; 93005; 94760; 96360; 99285; 99284; A9270-GY